=== PATIENT | female | born 1940 | race Two or more races ===

== ENCOUNTER 2019-03-28 17:22 | Inpatient (IN) | payer MEDICARE, OTHER ==
[2019-03-28] MEDS ORDERED: MethylPREDNISolone 40 mg Vial IVP STA (17:44)
[2019-03-28] MEDS ORDERED: Albuterol-Ipratrop 3 mg / 0.5 (3 ml) UD INH STA ×3 (17:44→17:45)
[2019-03-28] MEDS ORDERED: Piperacillin/Tazobact 3.375 gm 100 ML IVPB STA (18:03)
[2019-03-28] MEDS ORDERED: Vancomycin 1 gm/NS 200 ml 1 GM/200 ML BAG IVPB ONE (18:03)
[2019-03-28] MEDS ORDERED: Albuterol-Ipratrop 3 mg / 0.5 (3 ml) UD ONE (18:11)
--- NOTE | 2019-03-28 18:23 | C.PDOC ---
History Of Present Illness 78-year-old female, whose past medical history includes COPD, Hypertension, and Hyperlipidemia, presents to the ED for evaluation of cough, congestion and subjective fever. Patient states she was prescribed Amoxicillin by her PMD. She denies any other complaints. Time Seen by Provider: 03/28/19 17:38 Chief Complaint (Nursing): Cough, Cold, Congestion History Per: Patient History/Exam Limitations: no limitations Current Symptoms Are (Timing): Still Present Associated Symptoms: Fever, Cough, Nasal Congestion Additional History Per: Patient Past Medical History Reviewed: Historical Data, Nursing Documentation, Vital Signs Vital Signs: Last Vital Signs Temp 98 F 03/28/19 17:34 Pulse 95 H 03/28/19 17:34 Resp 22 03/28/19 17:34 BP 186/72 H 03/28/19 17:34 Pulse Ox 88 L 03/28/19 17:34 Primary Care Provider: Sj Villanueva - Medical History PMH: COPD, HTN, Hypercholesterolemia Surgical History: No Surg Hx Family History: States: Unknown Family Hx - Social History Hx Alcohol Use: No Hx Substance Use: No - Immunization History Hx Tetanus Toxoid Vaccination: No Hx Influenza Vaccination: Yes Hx Pneumococcal Vaccination: No Review Of Systems Constitutional: Positive for: Fever ENT: Positive for: Nose Congestion Respiratory: Positive for: Cough Gastrointestinal: Negative for: Nausea, Vomiting Physical Exam - Physical Exam Appears: Non-toxic, No Acute Distress Skin: Normal Color, Warm, Dry Head: Atraumatic, Normacephalic Eye(s): bilateral: Normal Inspection Ear(s): Bilateral: Normal Nose: Normal, No Discharge Oral Mucosa: Moist Neck: Supple Chest: Symmetrical, No Deformity, No Tenderness Cardiovascular: Rhythm Regular, No Murmur Respiratory: Decreased Breath Sounds (symmetrically ), No Rales, Rhonchi (scattered, worse in the right base ) Extremity: Normal ROM, Capillary Refill (less than 2 seconds ) Neurological/Psych: Oriented x3, Normal Speech, Normal Cognition ED Course And Treatment - Laboratory Results Result Diagrams: 03/28/19 18:26 03/28/19 18:26 ECG: Interpreted By Me, Viewed By Me ECG Rhythm: Sinus Rhythm Interpretation Of ECG: Normal Sinus Rhythm at rate 84bpm. Nonspecific ST/T wave changes. Rate From EC O2 Sat by Pulse Oximetry: 88 Medical Decision Making Medical Decision Making: ro copd pna Progress: Bloodwork,urinalysis,CXR, and EKG ordered and reviewed. Duoneb INH, Zosyn IVPB, Solu-Medrol IVP, and Vancomycin IVPB given. nebs steirod santibiotics given. (no pcn allergy). accepte jihan ngyugn Disposition - Disposition Disposition: HOSPITALIZED Disposition Time: 20:30 Condition: STABLE - Clinical Impression Clinical Impression: Pneumonia, COPD (chronic obstructive pulmonary disease) - PA / DISPLAY DECORATOR / Resident Statement MD/DO has reviewed & agrees with the documentation as recorded. - Scribe Statement The provider has reviewed the documentation as recorded by the Scribe (Melanie Javed) Provider Attestation: All medical record entries made by the Scribe were at my direction and personally dictated by me. I have reviewed the chart and agree that the record accurately reflects my personal performance of the history, physical exam, medical decision making, and the department course for this patient. I have also personally directed, reviewed, and agree with the discharge instructions and disposition. Decision To Admit - Pt Status Changed To: Hospital Disposition Of: Inpatient - Admit Certification Admit to Inpatient:: After my assessment, the patient will require hospitalization for at least two midnights. This is because of the severity of symptoms shown, intensity of services needed, and/or the medical risk in this patient being treated as an outpatient. - InPatient: Physician Admission Certification: I certify that this patient requires 2 or more midnights of care for the following reason:: copd - . Bed Request Type: Regular Admitting Physician: Blayne Altman Patient Diagnosis: Pneumonia, COPD (chronic obstructive pulmonary disease)
[2019-03-28 18:31] LABS: BASO # 0.1 K/uL (0.0-0.2); BASO % 0.4 % (0.0-2.0); EOS # 0.2 K/uL (0.0-0.7); EOS % 1.1 % (0.0-4.0); HEMOGLOBIN 12.2 g/dL (11.0-16.0); LYMPH # 1.3 K/uL (1.0-4.3); LYMPH % 8.7 % (20.0-40.0); MEAN CELL VOLUME 91.2 fL (81.0-99.0); MEAN CORPUSCULAR HEMOGLOBIN 29.9 pg (27.0-31.0); MEAN CORPUSCULAR HGB CONC 32.8 g/dL (33.0-37.0); MONO # 0.7 K/uL (0.0-0.8); MONO % 4.9 % (0.0-10.0); NEUT # 12.8 K/uL (1.8-7.0); NEUT % 84.9 % (50.0-75.0); PLATELET COUNT 524 K/uL (130-400); RBC 4.06 Mil/uL (3.80-5.20); RED CELL DISTRIBUTION WIDTH 14.9 % (11.5-14.5); WHITE BLOOD COUNT 15.1 K/uL (4.8-10.8)
[2019-03-28 18:40] LABS: INR 1.3; PROTHROMBIN TIME 14.1 SECONDS (9.7-12.2)
[2019-03-28 18:43] LABS: ALB/GLOB RATIO 0.8 (1.0-2.1); ALBUMIN 3.8 g/dL (3.5-5.0); ALT/SGPT 9 U/L (9-52); AST/SGOT 18 U/L (14-36); BLOOD UREA NITROGEN 19 mg/dL (7-17); CALCIUM 9.1 mg/dl (8.6-10.4); GFR NON-AFRICAN AMERICAN > 60
[2019-03-28] MEDS ORDERED: Piperacillin/Tazobact 3.375 gm 100 ML IVPB ONE (18:51)
[2019-03-28] MEDS ORDERED: Vancomycin 1 GM 1 GM/250 ML BAG IVPB ONE (18:51)
[2019-03-28 18:55] LABS: B-TYPE NATRIURETIC PEPTIDE 161 pg/mL (0-900)
--- NOTE | 2019-03-28 19:30 | CP.PCM.HP ---
<Britta Allison - Last Filed: 03/28/19 21:30> History of Present Illness - History of Present Illness History of Present Illness: cc: cough, congestion and malaise x2 months Patient is an 78 year old female w/ pmhx of COPD, HLD, bladder cancer who presents to the ED accompanied by her daughter, with complaints of malaise, cough and congestion on and off over the past 2 months. Patient reports she was treated by her PMD w/ abx, z-hal and augmentin most recently, with temporary improvement in symptoms; however they recur shortly thereafter. Patient reports cough, productive of yellow sputum, fevers/chills, SOB, decreased appetite and poor fluid intake. She reports 2 episodes of loose stool yesterday, but otherwise denies dysuria, vomiting, diarrhea. Patient reports non-compliance wi th home medications 2/2 feeling ill, not on home O2. PMD: Kay pmhx: COPD, HLD, bladder cancer, anxiety, psoriasis, left eye cataract/glaucoma? pshx: tonsillectomy, bladder scrapings meds: prevacid, lipitor, ativan, advair, atrovent, ventolin, eye drops-daughter will bring in meds tmrw allergies: denies, reports PCN insensitivity 2/2 frequent use as a child to treat recurrent tonsillitis sochx: smoker, denies alcohol/drug use. Lives alone w/ daughter in same building who helps care for her famhx: CHF Present on Admission - Present on Admission Any Indicators Present on Admission: No Review of Systems - Constitutional Constitutional: Anorexia, Chills, Fever - EENT Eyes: absent: Irritation, Itchy Eyes Nose/Mouth/Throat: Nasal Congestion. absent: Sore Throat - Cardiovascular Cardiovascular: absent: Chest Pain, Edema, Irregular Heart Rhythm - Respiratory Respiratory: Cough, Dyspnea, Chest Congestion, Change in Mucous Color (yellow). absent: Hemoptysis - Gastrointestinal Gastrointestinal: Loose Stools, Nausea. absent: Abdominal Pain, Diarrhea, Hematochezia, Vomiting - Genitourinary Genitourinary: Hx /Renal Surgery (bladder scrapings). absent: Difficulty Urinating, Dysuria - Integumentary Integumentary: Lesions (feet 2/2 psoriasis) - Neurological Neurological: absent: Numbness, Syncope - Psychiatric Psychiatric: Anxiety - Hematologic/Lymphatic Hematologic: absent: Easy Bleeding, Easy Bruising Past Patient History - Infectious Disease Hx of Infectious Diseases: None - Past Social History Smoking Status: Heavy Smoker > 10 Cigarettes Daily - CARDIAC Hx Hypercholesterolemia: Yes Hx Hypertension: Yes - PULMONARY Hx Chronic Obstructive Pulmonary Disease (COPD): Yes - HEMATOLOGICAL/ONCOLOGICAL Other/Comment: Hx of bladder CA with occasional scraping by Dr. Dey, as per daughter, stated on 03/28/2019. - INTEGUMENTARY Hx Psoriasis: Yes (feet) - GENITOURINARY/GYNECOLOGICAL Hx Bladder Cancer: Yes Other/Comment: Hx of bladder CA with occasional scraping by Dr. Dey, as per daughter, stated on 03/28/2019. - PSYCHIATRIC Hx Substance Use: No - SURGICAL HISTORY Hx Surgeries: Yes Hx Tonsillectomy: Yes Other/Comment: Bladder CA scraping - ANESTHESIA Hx Anesthesia: Yes Hx Anesthesia Reactions: No Hx Malignant Hyperthermia: No Meds Allergies/Adverse Reactions: Allergies Allergy/AdvReac Type Severity Reaction Status Date / Time Penicillins Allergy Intermediate Verified 03/28/19 17:41 Physical Exam - Constitutional Appears: Non-toxic, No Acute Distress - Head Exam Head Exam: ATRAUMATIC, NORMAL INSPECTION, NORMOCEPHALIC - Eye Exam Eye Exam: EOMI, Normal appearance. absent: Conjunctival injection Pupil Exam: NORMAL ACCOMODATION, PERRL - ENT Exam ENT Exam: Mucous Membranes Moist, Normal Exam - Neck Exam Neck exam: Positive for: Normal Inspection - Respiratory Exam Respiratory Exam: Decreased Breath Sounds, Rales (RLL), NORMAL BREATHING PATTERN. absent: Wheezes - Cardiovascular Exam Cardiovascular Exam: REGULAR RHYTHM, +S1, +S2. absent: Tachycardia - GI/Abdominal Exam GI & Abdominal Exam: Normal Bowel Sounds, Soft. absent: Distended, Tenderness - Extremities Exam Extremities exam: Positive for: normal inspection, pedal pulses present. Negative for: calf tenderness, pedal edema Additional comments: psoriatic lesions to toes bilaterally - Back Exam Back exam: NORMAL INSPECTION - Neurological Exam Neurological exam: Alert, Oriented x3 - Psychiatric Exam Psychiatric exam: Normal Affect, Normal Mood - Skin Skin Exam: Dry, Intact, Normal Color, Warm Results - Vital Signs Recent Vital Signs: Last Vital Signs Temp 98 F 03/28/19 17:34 Pulse 95 H 03/28/19 17:34 Resp 22 03/28/19 17:34 BP 186/72 H 03/28/19 17:34 Pulse Ox 88 L 03/28/19 19:19 - Labs Result Diagrams: 03/28/19 18:26 03/28/19 18:26 Labs: Laboratory Results - last 24 hr 03/28/19 03/28/19 03/28/19 18:26 18:26 18:26 WBC 15.1 H RBC 4.06 Hgb 12.2 Hct 37.0 MCV 91.2 D MCH 29.9 MCHC 32.8 L RDW 14.9 H Plt Count 524 H D MPV 6.0 L Neut % (Auto) 84.9 H Lymph % (Auto) 8.7 L [place] % (Auto) 4.9 Eos % (Auto) 1.1 Baso % (Auto) 0.4 Neut # (Auto) 12.8 H Lymph # (Auto) 1.3 [place] # (Auto) 0.7 Eos # (Auto) 0.2 Baso # (Auto) 0.1 PT 14.1 H INR 1.3 APTT 32.0 Sodium 143 Potassium 3.4 L Chloride 102 Carbon Dioxide 28 Anion Gap 17 BUN 19 H Creatinine 0.5 L Est GFR ( Amer) > 60 Est GFR (Non-Af Amer) > 60 Random Glucose 109 H D Calcium 9.1 Total Bilirubin 0.5 AST 18 ALT 9 D Alkaline Phosphatase 113 Troponin I < 0.0120 NT-Pro-B Natriuret Pep 161 Total Protein 8.5 H Albumin 3.8 Globulin 4.7 H Albumin/Globulin Ratio 0.8 L Assessment & Plan - Assessment and Plan (Free Text) Assessment: 78 year old female admitted for evaluation of cough, congestion and treatment of suspected PNA Plan: Suspected Pneumonia -leukocytosis 15.1 on admission -f/u CXR -given zosyn, vanc, solumedrol in ED -IV Abx, zosyn 3.375 mg ivpb q6h, vanco 1g ivpb q12h -vanco trough 03/30 @ 7:00am ordered -f/u sputum/blood cultures -f/u Mycoplasma/Legionella Ag, flu COPD -hold home meds -duonebs q4h jazmin -duonebs q2h prn -solumedrol 40mg iv q8h -O2 via NC HLD -hold home lipitor 10mg -replace w/ crestor 5mg po hs Hematuria -likely 2/2 bladder cancer -UA: 3+ blood, 226 RBC -AC contraindication Hypokalemia -K+ 3.4 on arrival -given K-dur 20mg po -replete prn Ppx GI: protonix VTE: SCDs, AC contraindicated, hematuria on UA likely 2/2 bladder cancer HHD, low Na+, supplements Florastor PT eval for O2 needs Discussed w/ Dr. Altman -Britta Allison, PGY-1 <Blayne Altman - Last Filed: 03/29/19 06:25> Results - Vital Signs Recent Vital Signs: Last Vital Signs Temp 98 F 03/28/19 23:39 Pulse 85 03/28/19 23:39 Resp 20 03/28/19 23:39 BP 112/60 03/28/19 23:39 Pulse Ox 96 03/28/19 23:39 - Labs Result Diagrams: 03/28/19 18:26 03/28/19 18:26 Labs: Laboratory Results - last 24 hr 03/28/19 03/28/19 03/28/19 18:26 18:26 18:26 WBC 15.1 H RBC 4.06 Hgb 12.2 Hct 37.0 MCV 91.2 D MCH 29.9 MCHC 32.8 L RDW 14.9 H Plt Count 524 H D MPV 6.0 L Neut % (Auto) 84.9 H Lymph % (Auto) 8.7 L [place] % (Auto) 4.9 Eos % (Auto) 1.1 Baso % (Auto) 0.4 Neut # (Auto) 12.8 H Lymph # (Auto) 1.3 Durham # (Auto) 0.7 Eos # (Auto) 0.2 Baso # (Auto) 0.1 Neutrophils % (Manual) 84 H Lymphocytes % (Manual) 6 L Monocytes % (Manual) 7 Eosinophils % (Manual) 3 Platelet Estimate Increased H PT 14.1 H INR 1.3 APTT 32.0 Sodium 143 Potassium 3.4 L Chloride 102 Carbon Dioxide 28 Anion Gap 17 BUN 19 H Creatinine 0.5 L Est GFR ( Amer) > 60 Est GFR (Non-Af Amer) > 60 Random Glucose 109 H D Calcium 9.1 Total Bilirubin 0.5 AST 18 ALT 9 D Alkaline Phosphatase 113 Troponin I < 0.0120 NT-Pro-B Natriuret Pep 161 Total Protein 8.5 H Albumin 3.8 Globulin 4.7 H Albumin/Globulin Ratio 0.8 L Urine Color Urine Clarity Urine pH Ur Specific Gardner Urine Protein Urine Glucose (UA) Urine Ketones Urine Blood Urine Nitrate Urine Bilirubin Urine Urobilinogen Ur Leukocyte Esterase Urine WBC (Auto) Urine RBC (Auto) Ur Squamous Epith Cells 03/28/19 19:47 WBC RBC Hgb Hct MCV MCH MCHC RDW Plt Count MPV Neut % (Auto) Lymph % (Auto) Durham % (Auto) Eos % (Auto) Baso % (Auto) Neut # (Auto) Lymph # (Auto) Durham # (Auto) Eos # (Auto) Baso # (Auto) Neutrophils % (Manual) Lymphocytes % (Manual) Monocytes % (Manual) Eosinophils % (Manual) Platelet Estimate PT INR APTT Sodium Potassium Chloride Carbon Dioxide Anion Gap BUN Creatinine Est GFR ( Amer) Est GFR (Non-Af Amer) Random Glucose Calcium Total Bilirubin AST ALT Alkaline Phosphatase Troponin I NT-Pro-B Natriuret Pep Total Protein Albumin Globulin Albumin/Globulin Ratio Urine Color Yellow Urine Clarity Hazy Urine pH 5.0 Ur Specific Gardner 1.024 Urine Protein 1+ H Urine Glucose (UA) Normal Urine Ketones Negative Urine Blood 3+ H Urine Nitrate Negative Urine Bilirubin Negative Urine Urobilinogen Normal Ur Leukocyte Esterase Neg Urine WBC (Auto) 5 Urine RBC (Auto) 226 H Ur Squamous Epith Cells 3 Assessment & Plan - Date & Time Date: 03/29/19 (I have seen and examined the patient. I agree with the findings and plan of care as documented by Dr. Allison. Patient with pneumonia. History of COPD. Nebs, oxygen, solumedrol. Vanco and Zosyn. Failed outpatient therapy. Hematuria. History of bladder cancer. Monitor hemoglobin. Monitor for acute changes.) Time: 06:24 Attending/Attestation - Attestation I have personally seen and examined this patient.: Yes I have fully participated in the care of the patient.: Yes I have reviewed all pertinent clinical information: Yes
[2019-03-28] MEDS ORDERED: Albuterol-Ipratrop 3 mg / 0.5 (3 ml) UD INH PRN (20:18)
[2019-03-28] MEDS ORDERED: MethylPREDNISolone 40 mg Vial IM SCH (20:30)
[2019-03-28 20:48] LABS: SQUAMOUS EPITHIAL 3 /hpf (0-5); URINE BILIRUBIN NEGATIVE (NEGATIVE); URINE BLOOD 3+ (NEGATIVE); URINE CLARITY Hazy (Clear); URINE COLOR Yellow (YELLOW); URINE GLUCOSE (UA) NORMAL (Normal); URINE LEUKOCYTE ESTERASE NEG Leu/uL (Negative); URINE PROTEIN 1+ mg/dL (NEGATIVE); URINE UROBILINOGEN NORMAL mg/dL (0.2-1.0)
[2019-03-28] MEDS ORDERED: Potassium Chloride 20 mEq ER Tab PO ONE (21:15)
[2019-03-28 21:35] VITALS: RESP 20
[2019-03-28 21:41] LABS: EOSINOPHIL 3 % (0-4); LYMPHOCYTE 6 % (20-40); MONOCYTE 7 % (0-10); NEUTROPHIL 84 % (50-75); PLATELET ESTIMATE INCREASED (NORMAL); TOTAL CELLS COUNTED 100
[2019-03-28] MEDS: MethylPREDNISolone 40 mg Vial IV SCH (21:45)
[2019-03-29] MEDS: Albuterol-Ipratrop 3 mg / 0.5 (3 ml) UD INH SCH ×7 (00:08→23:53)
[2019-03-29] MEDS: Piperacill/Tazo 3.375gm in Dex 3.375 GM/50 ML BAG IVPB SCH ×4 (00:28→18:23)
[2019-03-29] MEDS: MethylPREDNISolone 40 mg Vial IV SCH ×3 (05:22→22:01)
[2019-03-29 06:41] LABS: BASO # 0.1 K/uL (0.0-0.2); BASO % 1.2 % (0.0-2.0); EOS # 0.4 K/uL (0.0-0.7); EOS % 6.5 % (0.0-4.0); HEMOGLOBIN 12.7 g/dL (11.0-16.0); LYMPH # 1.6 K/uL (1.0-4.3); LYMPH % 25.2 % (20.0-40.0); MEAN CELL VOLUME 92.4 fL (81.0-99.0); MEAN CORPUSCULAR HEMOGLOBIN 31.6 pg (27.0-31.0); MEAN CORPUSCULAR HGB CONC 34.1 g/dL (33.0-37.0); MEAN PLATELET VOLUME 8.8 fL (7.2-11.7); MONO # 0.8 K/uL (0.0-0.8); MONO % 13.1 % (0.0-10.0); NEUT # 3.4 K/uL (1.8-7.0); RBC 4.03 Mil/uL (3.80-5.20); RED CELL DISTRIBUTION WIDTH 13.4 % (11.5-14.5); WHITE BLOOD COUNT 6.4 K/uL (4.8-10.8)
[2019-03-29 07:41] LABS: ALB/GLOB RATIO 1.3 (1.0-2.1); ALBUMIN 3.6 g/dL (3.5-5.0); ALT/SGPT 26 U/L (9-52); AST/SGOT 33 U/L (14-36); BLOOD UREA NITROGEN 30 mg/dL (7-17); CALCIUM 9.2 mg/dl (8.6-10.4); GFR NON-AFRICAN AMERICAN > 60
[2019-03-29] MEDS: Vancomycin 1 gm/NS 200 ml 1 GM/200 ML BAG IVPB SCH ×2 (07:51→20:08)
--- NOTE | 2019-03-29 09:11 | CP.PCM.PCO ---
Physician Communication Note - Physician Communication Note Physician Communication Note: Please see above
[2019-03-29] MEDS: Pantoprazole 40 mg EC Tab PO SCH (09:27)
[2019-03-29] MEDS: Lactobacillus Acidophilus 500 MU Cap PO SCH ×2 (09:27→22:00)
[2019-03-29] MEDS ORDERED: Potassium Chloride 20 mEq ER Tab PO ONE ×2 (10:00→12:00)
[2019-03-29] MEDS ORDERED: Saccharomyces Boulardi 250 mg Cap PO SCH (10:00)
--- NOTE | 2019-03-29 10:07 | CP.PCM.PN ---
<Derrell Price - Last Filed: 03/29/19 16:19> Subjective - Date & Time of Evaluation Date of Evaluation: 03/29/19 Time of Evaluation: 10:04 - Subjective Subjective: HOSPITALIST SERVICE Pt s/e at bedside, reports improvement of her SOB overnight w/ breathing treatments, reports producing yellow sputum, no blood. Pt understands and agrees with plan for continued antibiotics and will remain inpatient at this time. Denies CP, fevers/chills, nausea/vomiting, or any new onset body aches headaches, 12 point ROS reviewed and otherwise neg Objective - Vital Signs/Intake and Output Vital Signs (last 24 hours): Temp Pulse Resp BP Pulse Ox 98.1 F 70 20 124/64 95 03/29/19 07:00 03/29/19 07:00 03/29/19 07:00 03/29/19 07:00 03/29/19 07:00 Intake and Output: 03/29/19 03/29/19 06:59 18:59 Intake Total 250 Balance 250 - Medications Medications: Current Medications Albuterol/Ipratropium (Duoneb 3 Mg/0.5 Mg (3 Ml) Ud) 3 ml INH RQ4 PERI Last Admin: 03/29/19 08:41 Dose: 3 ml Albuterol/Ipratropium (Duoneb 3 Mg/0.5 Mg (3 Ml) Ud) 3 ml INH RQ2 PRN PRN Reason: Shortness of Breath Piperacillin Sod/Tazobactam Sod (Zosyn 3.375 Gm Iv Premix) 3.375 gm in 50 mls @ 100 mls/hr IVPB Q6H PERI; Protocol Last Admin: 03/29/19 06:21 Dose: 100 mls/hr Vancomycin/Sodium Chloride (Vancomycin 1 Gm/Ns 200 Ml) 1 gm in 200 mls @ 133 mls/hr IVPB Q12H PERI; Protocol Stop: 04/03/19 07:31 Last Admin: 03/29/19 07:51 Dose: 133 mls/hr Lactobacillus Acidophilus (Lactobacillus) 1 cap PO Q12H PERI Last Admin: 03/29/19 09:27 Dose: 1 cap Lorazepam (Ativan) 0.5 mg PO TID PRN PRN Reason: Anxiety Last Admin: 03/29/19 09:42 Dose: 0.5 mg Methylprednisolone (Solu-Medrol) 40 mg IV Q8H [facility] Last Admin: 03/29/19 05:22 Dose: 40 mg Pantoprazole Sodium (Protonix Ec Tab) 40 mg PO DAILY [facility] Last Admin: 03/29/19 09:27 Dose: 40 mg Pneumococcal Polyvalent Vaccine (Pneumovax 23 Vaccine) 0.5 ml IM .ONCE ONE Stop: 03/30/19 10:01 Potassium Chloride (K-Dur 20 Meq Er Tab) 20 meq PO ONCE ONE Stop: 03/29/19 12:01 Rosuvastatin Calcium (Crestor) 5 mg PO HS [facility] Last Admin: 03/28/19 21:45 Dose: 5 mg - Labs Labs: 03/29/19 06:33 03/29/19 06:33 PT 14.1 SECONDS (9.7-12.2) H 03/28/19 18:26 INR 1.3 03/28/19 18:26 APTT 32.0 SECONDS (21-34) 03/28/19 18:26 - Additional Findings Additional findings: - Constitutional Constitutional: Anorexia, Chills, Fever - EENT Eyes: absent: Irritation, Itchy Eyes Nose/Mouth/Throat: Nasal Congestion. absent: Sore Throat - Cardiovascular Cardiovascular: absent: Chest Pain, Edema, Irregular Heart Rhythm - Respiratory Respiratory: Cough, Dyspnea, Chest Congestion, Change in Mucous Color (yellow), basillar rales L side. absent: Hemoptysis - Gastrointestinal Gastrointestinal: Loose Stools, Nausea. absent: Abdominal Pain, Diarrhea, Hematochezia, Vomiting - Genitourinary Genitourinary: Hx /Renal Surgery (bladder scrapings). absent: Difficulty Urinating, Dysuria - Integumentary Integumentary: Lesions (feet 2/2 psoriasis) - Neurological Neurological: absent: Numbness, Syncope - Psychiatric Psychiatric: Anxiety - Hematologic/Lymphatic Hematologic: absent: Easy Bleeding, Easy Bruising Assessment and Plan - Assessment and Plan (Free Text) Assessment: 78F admitted with pneumonia unresponsive to Z clinton/Augmentin CAP with Risk for Pseudomonas and MRSA (Hx COPD and Recent Antibiotic Use: Z Clinton and Augmentin) Status: Acute -Zosyn and Vancomycin IVPB -F/U Blood Culture -F/U Mycoplasma IgM and IgG -F/U Urine Legionella Ag -F/U Urine Strep penumoniae Ag -F/U Vancomycin Trough 7 PM 03/30/19 (Vancomycin is being given 7:30 AM and 7:30 PM) -CXR from yesterday appears unchanged from previous in chart, f/u official read COPD Exacerbation Status: Acute -Duoneb q2 PRN for SOB -Solumedrol 40 mg IV Q8H -Consider Pulmonology Consult Hypokalemia Status: Acute -60meq KCL repleated -f/u AM CMP Hx Anxiety Status: Chronic -Ativan dose lowered from 2mg to 0.5 mg PRN TID with 0.5mg HS Hx HLD Status: Chronic -Crestor 5mg HS Hx Nicotine Addiction Status: Chronic Hx Bladder CA Status: Chronic -Private Urologist Dr. Danay Dey: next appointment April 2019. -last Cytoscopy December 2018. -Monitor for hematuria Hx Left Eye [place]/Cataract Status: Chronic -Dr Slaughter is her private Ophtholmolgist [phone] -Home Drops: Smooth XP, Refresh Tears, PredForte PPx -Probiotic -PTX -PT/OT -SCDs -Supplemental Diet Dispo: dc home in 48hrs afebrile and improving clinically [facility] PGY1 <Malcolm Javed - Last Filed: 03/29/19 17:21> Objective - Vital Signs/Intake and Output Vital Signs (last 24 hours): Temp Pulse Resp BP Pulse Ox 98.8 F 83 20 125/59 L 98 03/29/19 15:47 03/29/19 15:47 03/29/19 15:47 03/29/19 15:47 03/29/19 15:47 Intake and Output: 03/29/19 03/29/19 06:59 18:59 Intake Total 250 350 Balance 250 350 - Medications Medications: Current Medications Acetaminophen (Tylenol 325mg Tab) 650 mg PO Q12 PRN PRN Reason: Pain, moderate (4-7) Albuterol/Ipratropium (Duoneb 3 Mg/0.5 Mg (3 Ml) Ud) 3 ml INH RQ4 PERI Last Admin: 03/29/19 16:32 Dose: 3 ml Albuterol/Ipratropium (Duoneb 3 Mg/0.5 Mg (3 Ml) Ud) 3 ml INH RQ2 PRN PRN Reason: Shortness of Breath Piperacillin Sod/Tazobactam Sod (Zosyn 3.375 Gm Iv Premix) 3.375 gm in 50 mls @ 100 mls/hr IVPB Q6H PERI; Protocol Last Admin: 03/29/19 13:06 Dose: 100 mls/hr Vancomycin/Sodium Chloride (Vancomycin 1 Gm/Ns 200 Ml) 1 gm in 200 mls @ 133 mls/hr IVPB Q12H PERI; Protocol Stop: 04/03/19 07:31 Last Admin: 03/29/19 07:51 Dose: 133 mls/hr Lactobacillus Acidophilus (Lactobacillus) 1 cap PO Q12H PERI Last Admin: 03/29/19 09:27 Dose: 1 cap Lorazepam (Ativan) 0.5 mg PO TID PRN PRN Reason: Anxiety Last Admin: 03/29/19 09:42 Dose: 0.5 mg Lorazepam (Ativan) 0.5 mg PO HS ONE Stop: 03/29/19 22:01 Methylprednisolone (Solu-Medrol) 40 mg IV Q8H PERI Last Admin: 03/29/19 13:12 Dose: 40 mg Pantoprazole Sodium (Protonix Ec Tab) 40 mg PO DAILY PERI Last Admin: 03/29/19 09:27 Dose: 40 mg Pneumococcal Polyvalent Vaccine (Pneumovax 23 Vaccine) 0.5 ml IM .ONCE ONE Stop: 03/30/19 10:01 Rosuvastatin Calcium (Crestor) 5 mg PO HS [facility] Last Admin: 03/28/19 21:45 Dose: 5 mg - Labs Labs: 03/29/19 06:33 03/29/19 06:33 PT 14.1 SECONDS (9.7-12.2) H 03/28/19 18:26 INR 1.3 03/28/19 18:26 APTT 32.0 SECONDS (21-34) 03/28/19 18:26 Attending/Attestation - Attestation I have personally seen and examined this patient.: Yes I have fully participated in the care of the patient.: Yes I have reviewed all pertinent clinical information, including history, physical exam and plan: Yes Notes (Text): 03/29/19 17:20 Care of this patient was gone over in detail with resident Dr. Price. Please also see my Physician Communication Note. Malcolm Javed D.O.
--- NOTE | 2019-03-29 11:26 | RAD ---
HISTORY: chest pain COMPARISON: None available. TECHNIQUE: Chest, one view. FINDINGS: LUNGS: Patchy bilateral lower lobe infiltrates. Small left pleural effusion and/or consolidation. Biapical pleural thickening and granulomatous changes. No definite pneumothorax. Please note that chest x-ray has limited sensitivity for the detection of pulmonary masses. CARDIOVASCULAR: Heart size appears within normal limits. Dense atherosclerotic calcifications of the aorta. OSSEOUS STRUCTURES: Degenerative changes. Osseous demineralization. VISUALIZED UPPER ABDOMEN: Unremarkable. OTHER FINDINGS: None. IMPRESSION: Patchy bilateral lower lobe infiltrates. Small left pleural effusion and/or consolidation. Biapical pleural thickening and granulomatous changes.
[2019-03-29] MEDS ORDERED: Potassium Chloride 20 mEq/15 ml LIQ UD PO ONE (13:15)
[2019-03-29] MEDS: Simethicone 80 mg Chewtab PO PRN (22:40)
[2019-03-30] MEDS: Piperacill/Tazo 3.375gm in Dex 3.375 GM/50 ML BAG IVPB SCH ×5 (00:39→23:41)
[2019-03-30] MEDS: Albuterol-Ipratrop 3 mg / 0.5 (3 ml) UD INH SCH ×5 (03:08→20:23)
[2019-03-30] MEDS: MethylPREDNISolone 40 mg Vial IV SCH ×3 (05:56→21:33)
[2019-03-30 06:40] LABS: BASO # 0.2 K/uL (0.0-0.2); LYMPH # 0.6 K/uL (1.0-4.3); LYMPH % 2.9 % (20.0-40.0); MEAN CORPUSCULAR HEMOGLOBIN 29.8 pg (27.0-31.0); MEAN CORPUSCULAR HGB CONC 32.8 g/dL (33.0-37.0); MEAN PLATELET VOLUME 6.3 fL (7.2-11.7); MONO # 0.4 K/uL (0.0-0.8); MONO % 1.9 % (0.0-10.0); NEUT % 94.2 % (50.0-75.0); PLATELET COUNT 550 K/uL (130-400); RED CELL DISTRIBUTION WIDTH 15.2 % (11.5-14.5); WHITE BLOOD COUNT 21.3 K/uL (4.8-10.8)
[2019-03-30 06:52] LABS: HEMOGLOBIN 10.7 g/dL (11.0-16.0)
[2019-03-30] MEDS: Vancomycin 1 gm/NS 200 ml 1 GM/200 ML BAG IVPB SCH ×2 (07:56→21:12)
[2019-03-30 08:01] LABS: ALB/GLOB RATIO 0.8 (1.0-2.1); ALBUMIN 3.5 g/dL (3.5-5.0); ALT/SGPT 14 U/L (9-52); AST/SGOT 35 U/L (14-36); BLOOD UREA NITROGEN 20 mg/dL (7-17); CALCIUM 9.3 mg/dl (8.6-10.4); GFR NON-AFRICAN AMERICAN > 60
[2019-03-30] MEDS: Lactobacillus Acidophilus 500 MU Cap PO SCH ×2 (09:32→22:01)
[2019-03-30] MEDS: Pantoprazole 40 mg EC Tab PO SCH (09:33)
[2019-03-30 09:54] LABS: MONOCYTE 2 % (0-10); TOTAL CELLS COUNTED 100
[2019-03-30 09:55] LABS: ANISOCYTOSIS SLIGHT; LYMPHOCYTE 2 % (20-40); NEUTROPHIL 96 % (50-75); PLATELET ESTIMATE INCREASED (NORMAL)
[2019-03-30 09:56] LABS: HYPOCHROMIC SLIGHT
[2019-03-30] MEDS ORDERED: Pneumococcal 23-Valent Vaccine IM ONE (10:00)
--- NOTE | 2019-03-30 11:17 | CP.PCM.PN ---
Subjective - Date & Time of Evaluation Date of Evaluation: 03/30/19 Time of Evaluation: 11:15 - Subjective Subjective: HOSPITALIST SERVICE Pt s/e at bedside, reports improvement in cough and SOB as compared to yesterday. Reports no acute symptoms overnight. denies CP FC NV. understands she will need to f/u with a traffic i manager and agrees with plan. Objective - Vital Signs/Intake and Output Vital Signs (last 24 hours): Temp Pulse Resp BP Pulse Ox 98 F 78 20 130/68 96 03/29/19 23:37 03/29/19 23:37 03/29/19 23:37 03/29/19 23:37 03/29/19 23:37 Intake and Output: 03/30/19 03/30/19 06:59 18:59 Intake Total 450 Balance 450 - Medications Medications: Current Medications Acetaminophen (Tylenol 325mg Tab) 650 mg PO Q12 PRN PRN Reason: Pain, moderate (4-7) Albuterol/Ipratropium (Duoneb 3 Mg/0.5 Mg (3 Ml) Ud) 3 ml INH RQ4 PERI Last Admin: 03/30/19 08:32 Dose: 3 ml Albuterol/Ipratropium (Duoneb 3 Mg/0.5 Mg (3 Ml) Ud) 3 ml INH RQ2 PRN PRN Reason: Shortness of Breath Piperacillin Sod/Tazobactam Sod (Zosyn 3.375 Gm Iv Premix) 3.375 gm in 50 mls @ 100 mls/hr IVPB Q6H PERI; Protocol Last Admin: 03/30/19 05:55 Dose: 100 mls/hr Vancomycin/Sodium Chloride (Vancomycin 1 Gm/Ns 200 Ml) 1 gm in 200 mls @ 133 mls/hr IVPB Q12H PERI; Protocol Stop: 04/03/19 07:31 Last Admin: 03/30/19 07:56 Dose: 133 mls/hr Lactobacillus Acidophilus (Lactobacillus) 1 cap PO Q12H PERI Last Admin: 03/30/19 09:32 Dose: 1 cap Lorazepam (Ativan) 0.5 mg PO TID PRN PRN Reason: Anxiety Last Admin: 03/30/19 07:57 Dose: 0.5 mg Methylprednisolone (Solu-Medrol) 40 mg IV Q12 PERI Pantoprazole Sodium (Protonix Ec Tab) 40 mg PO DAILY [facility] Last Admin: 03/30/19 09:33 Dose: 40 mg Rosuvastatin Calcium (Crestor) 5 mg PO HS [facility] Last Admin: 03/29/19 22:01 Dose: 5 mg Simethicone (Mylicon Chew Tab) 80 mg PO Q6 PRN PRN Reason: GI distress Last Admin: 03/29/19 22:40 Dose: 80 mg - Labs Labs: 03/30/19 06:35 03/30/19 06:35 PT 14.1 SECONDS (9.7-12.2) H 03/28/19 18:26 INR 1.3 03/28/19 18:26 APTT 32.0 SECONDS (21-34) 03/28/19 18:26 - Additional Findings Additional findings: - Constitutional Constitutional: Anorexia, Chills, Fever - EENT Eyes: absent: Irritation, Itchy Eyes Nose/Mouth/Throat: Nasal Congestion. absent: Sore Throat - Cardiovascular Cardiovascular: absent: Chest Pain, Edema, Irregular Heart Rhythm - Respiratory Respiratory: Cough, Dyspnea, Chest Congestion, Change in Mucous Color (yellow), basillar rales L side. absent: Hemoptysis - Gastrointestinal Gastrointestinal: Loose Stools, Nausea. absent: Abdominal Pain, Diarrhea, Hematochezia, Vomiting - Genitourinary Genitourinary: Hx /Renal Surgery (bladder scrapings). absent: Difficulty Urinating, Dysuria - Integumentary Integumentary: Lesions (feet 2/2 psoriasis) - Neurological Neurological: absent: Numbness, Syncope - Psychiatric Psychiatric: Anxiety - Hematologic/Lymphatic Hematologic: absent: Easy Bleeding, Easy Bruising Assessment and Plan - Assessment and Plan (Free Text) Assessment: 78F admitted with pneumonia unresponsive to Z clinton/Augmentin CAP with Risk for Pseudomonas and MRSA (Hx COPD and Recent Antibiotic Use: Z Clinton and Augmentin) Status: Acute -Zosyn and Vancomycin IVPB -Neg Blood Culture -Neg Mycoplasma IgM and IgG -Neg Urine Legionella Ag -Neg Urine Strep penumoniae Ag -F/U Vancomycin Trough 7 PM 03/30/19 (Vancomycin is being given 7:30 AM and 7:30 PM) -CXR shows no new evidence of infiltrates/ worsening disease COPD Exacerbation Status: Acute -Duoneb q2 PRN for SOB -Solumedrol 40 mg IV Q8H -Dr Potts Pulmonology Consult f/u room air ABG, consider home O2 Rx on dc Hx Anxiety Status: Chronic -Ativan dose lowered from 2mg to 0.5 mg PRN TID with 0.5mg HS Hx HLD Status: Chronic -Crestor 5mg HS Hx Nicotine Addiction Status: Chronic Hx Bladder CA Status: Chronic -Private Urologist Dr. Danay Dey: next appointment April 2019. -last Cytoscopy December 2018. -Monitor for hematuria Hx Left Eye [place]/Cataract Status: Chronic -Dr Slaughter is her private Ophtholmolgist [phone] -Home Drops: Smooth XP, Refresh Tears, PredForte Hypokalemia Status: resolved PPx -Probiotic -PTX -PT/OT -SCDs -Supplemental Diet Dispo: dc home tmrw when home O2 and Pulm recs attained, f/u ABG. afebrile and improving clinically CK PGY1
--- NOTE | 2019-03-30 11:18 | CP.PCM.PCO ---
Physician Communication Note - Physician Communication Note Physician Communication Note: Please see above
--- NOTE | 2019-03-30 13:37 | CP.PCM.CON ---
History of Present Illness - History of Present Illness History of Present Illness: Reason for consultation: COPD/shortness of breath 78-year-old female with history of COPD/long history of smoking/hyperlipidemia/bladder cancer presented to emergency room complaining of cough, congestion and shortness of breath for the past 2 months which progressively got worse. Patient took 2 courses of antibiotics without impro vement. Cough is productive of yellowish phlegm but denies fever chills, denies chest pain pmhx: COPD, HLD, bladder cancer, anxiety, psoriasis, left eye cataract/glaucoma? pshx: tonsillectomy, bladder scrapings meds: prevacid, lipitor, ativan, advair, atrovent, ventolin, eye drops-daughter will bring in meds tmrw allergies: denies, reports PCN insensitivity 2/2 frequent use as a child to treat recurrent tonsillitis sochx: smoker, denies alcohol/drug use. Lives alone w/ daughter in same build ing who helps care for her famhx: CHF Review of Systems - Review of Systems All systems: reviewed and no additional remarkable complaints except (Cough and shortness of breath) Past Patient History - Infectious Disease Hx of Infectious Diseases: None - Past Medical History & Family History Past Medical History?: Yes - Past Social History Smoking Status: Current Some Days Smoker - CARDIAC Hx Hypercholesterolemia: Yes Hx Hypertension: Yes - PULMONARY Hx Chronic Obstructive Pulmonary Disease (COPD): Yes - HEMATOLOGICAL/ONCOLOGICAL Other/Comment: Hx of bladder CA with occasional scraping by Dr. Dey, as per daughter, stated on 03/28/2019. - INTEGUMENTARY Hx Psoriasis: Yes (feet) - MUSCULOSKELETAL/RHEUMATOLOGICAL Hx Falls: No - GENITOURINARY/GYNECOLOGICAL Hx Bladder Cancer: Yes Other/Comment: Hx of bladder CA with occasional scraping by Dr. Dey, as per daughter, stated on 03/28/2019. - PSYCHIATRIC Hx Substance Use: No - SURGICAL HISTORY Hx Surgeries: Yes Hx Tonsillectomy: Yes Other/Comment: Bladder CA scraping - ANESTHESIA Hx Anesthesia: Yes Hx Anesthesia Reactions: No Hx Malignant Hyperthermia: No Meds Allergies/Adverse Reactions: Allergies Allergy/AdvReac Type Severity Reaction Status Date / Time Penicillins Allergy Intermediate Verified 03/28/19 17:41 - Medications Medications: Current Medications Acetaminophen (Tylenol 325mg Tab) 650 mg PO Q12 PRN PRN Reason: Pain, moderate (4-7) Albuterol/Ipratropium (Duoneb 3 Mg/0.5 Mg (3 Ml) Ud) 3 ml INH RQ4 PERI Last Admin: 03/30/19 11:24 Dose: 3 ml Albuterol/Ipratropium (Duoneb 3 Mg/0.5 Mg (3 Ml) Ud) 3 ml INH RQ2 PRN PRN Reason: Shortness of Breath Piperacillin Sod/Tazobactam Sod (Zosyn 3.375 Gm Iv Premix) 3.375 gm in 50 mls @ 100 mls/hr IVPB Q6H PERI; Protocol Last Admin: 03/30/19 11:33 Dose: 100 mls/hr Vancomycin/Sodium Chloride (Vancomycin 1 Gm/Ns 200 Ml) 1 gm in 200 mls @ 133 mls/hr IVPB Q12H PERI; Protocol Stop: 04/03/19 07:31 Last Admin: 03/30/19 07:56 Dose: 133 mls/hr Lactobacillus Acidophilus (Lactobacillus) 1 cap PO Q12H PERI Last Admin: 03/30/19 09:32 Dose: 1 cap Lorazepam (Ativan) 0.5 mg PO TID PRN PRN Reason: Anxiety Last Admin: 03/30/19 07:57 Dose: 0.5 mg Methylprednisolone (Solu-Medrol) 40 mg IV Q12 PERI Pantoprazole Sodium (Protonix Ec Tab) 40 mg PO DAILY [facility] Last Admin: 03/30/19 09:33 Dose: 40 mg Rosuvastatin Calcium (Crestor) 5 mg PO HS [facility] Last Admin: 03/29/19 22:01 Dose: 5 mg Simethicone (Mylicon Chew Tab) 80 mg PO Q6 PRN PRN Reason: GI distress Last Admin: 03/29/19 22:40 Dose: 80 mg Physical Exam - Head Exam Head Exam: ATRAUMATIC, NORMOCEPHALIC - ENT Exam ENT Exam: Mucous Membranes Moist - Neck Exam Neck exam: Positive for: Normal Inspection - Respiratory Exam Respiratory Exam: Decreased Breath Sounds - Cardiovascular Exam Cardiovascular Exam: REGULAR RHYTHM - GI/Abdominal Exam GI & Abdominal Exam: Normal Bowel Sounds, Soft - Extremities Exam Extremities exam: Positive for: normal inspection - Neurological Exam Neurological exam: Alert, Oriented x3 Results - Vital Signs Recent Vital Signs: Last Vital Signs Temp 98 F 03/29/19 23:37 Pulse 78 03/29/19 23:37 Resp 20 03/29/19 23:37 BP 130/68 03/29/19 23:37 Pulse Ox 96 03/29/19 23:37 - Labs Result Diagrams: 03/30/19 13:39 03/30/19 06:35 Labs: Laboratory Results - last 24 hr 03/29/19 03/29/19 03/29/19 17:03 19:46 19:49 WBC RBC Hgb Hct MCV MCH MCHC RDW Plt Count MPV Neut % (Auto) Lymph % (Auto) [place] % (Auto) Eos % (Auto) Baso % (Auto) Neut # (Auto) Lymph # (Auto) [place] # (Auto) Eos # (Auto) Baso # (Auto) Neutrophils % (Manual) Lymphocytes % (Manual) Monocytes % (Manual) Platelet Estimate Hypochromasia (manual) Anisocytosis (manual) Sodium Potassium Chloride Carbon Dioxide Anion Gap BUN Creatinine Est GFR ( Amer) Est GFR (Non-Af Amer) Random Glucose Calcium Phosphorus Magnesium Total Bilirubin AST ALT Alkaline Phosphatase Total Protein Albumin Globulin Albumin/Globulin Ratio Influenza Typ A,B (EIA) Negative for flu a/b Ur L.pneumophila Ag Negative Mycoplasma pneumon IgM Negative S. pneumoniae Antigen 03/29/19 03/30/19 03/30/19 19:49 06:35 06:35 WBC 21.3 H D RBC 3.60 L Hgb 10.7 L D Hct 32.7 L MCV 91.0 MCH 29.8 MCHC 32.8 L RDW 15.2 H Plt Count 550 H D MPV 6.3 L Neut % (Auto) 94.2 H Lymph % (Auto) 2.9 L [place] % (Auto) 1.9 Eos % (Auto) 0.0 Baso % (Auto) 1.0 Neut # (Auto) 20.0 H Lymph # (Auto) 0.6 L [place] # (Auto) 0.4 Eos # (Auto) 0.0 Baso # (Auto) 0.2 Neutrophils % (Manual) 96 H Lymphocytes % (Manual) 2 L Monocytes % (Manual) 2 Platelet Estimate Increased H Hypochromasia (manual) Slight Anisocytosis (manual) Slight Sodium 137 Potassium 4.5 Chloride 103 Carbon Dioxide 22 Anion Gap 16 BUN 20 H Creatinine 0.6 L Est GFR ( Amer) > 60 Est GFR (Non-Af Amer) > 60 Random Glucose 132 H D Calcium 9.3 Phosphorus 3.0 Magnesium 2.0 Total Bilirubin 0.3 AST 35 ALT 14 Alkaline Phosphatase 89 Total Protein 7.8 Albumin 3.5 Globulin 4.3 H Albumin/Globulin Ratio 0.8 L Influenza Typ A,B (EIA) Ur L.pneumophila Ag Mycoplasma pneumon IgM S. pneumoniae Antigen Negative Assessment & Plan (1) COPD (chronic obstructive pulmonary disease) Assessment and Plan: Continue IV steroids and nebulizer treatment IV antibiotics Home oxygen Physical therapy Consider Daliresp Status: Acute (2) Pneumonia Status: Acute
--- NOTE | 2019-03-30 13:40 | CARD ---
APPROVED REPORT Date of service: 03/28/2019 EKG Measurement Heart [id number] <Conclusion> Normal sinus rhythm Inferior infarct, age undetermined Anterior infarct, age undetermined Abnormal ECG
[2019-03-30 13:51] LABS: BASO % 0.1 % (0.0-2.0); HEMOGLOBIN 11.4 g/dL (11.0-16.0); LYMPH # 0.5 K/uL (1.0-4.3); LYMPH % 2.4 % (20.0-40.0); MEAN CELL VOLUME 92.4 fL (81.0-99.0); MEAN CORPUSCULAR HEMOGLOBIN 29.6 pg (27.0-31.0); MEAN PLATELET VOLUME 6.2 fL (7.2-11.7); MONO # 0.4 K/uL (0.0-0.8); MONO % 2.1 % (0.0-10.0); NEUT # 18.7 K/uL (1.8-7.0); NEUT % 95.4 % (50.0-75.0); PLATELET COUNT 581 K/uL (130-400); RBC 3.86 Mil/uL (3.80-5.20); RED CELL DISTRIBUTION WIDTH 15.1 % (11.5-14.5); WHITE BLOOD COUNT 19.6 K/uL (4.8-10.8)
[2019-03-30 14:19] LABS: ARTERIAL BLOOD GAS HCO3 26.8 mmol/L (21-28); ARTERIAL BLOOD GAS PCO2 40 mm/Hg (35-45); ARTERIAL BLOOD GAS PH 7.44 (7.35-7.45); ARTERIAL BLOOD GAS PO2 51 mm/Hg (80-100); ARTERIAL BLOOD GAS TCO2 28.4 mmol/L (22-28)
[2019-03-30 15:03] LABS: LYMPHOCYTE 3 % (20-40); NEUTROPHIL 97 % (50-75); PLATELET ESTIMATE INCREASED (NORMAL); TOTAL CELLS COUNTED 100
[2019-03-30 15:10] LABS: ANISOCYTOSIS SLIGHT; HYPOCHROMIC SLIGHT; POLYCHROMIC SLIGHT
[2019-03-30] MEDS: Simethicone 80 mg Chewtab PO PRN (16:59)
[2019-03-31] MEDS: Albuterol-Ipratrop 3 mg / 0.5 (3 ml) UD INH SCH ×4 (00:25→12:37)
[2019-03-31] MEDS ORDERED: MethylPREDNISolone 40 mg Vial IVP ONE (02:00)
[2019-03-31] MEDS: Piperacill/Tazo 3.375gm in Dex 3.375 GM/50 ML BAG IVPB SCH ×2 (05:44→12:58)
[2019-03-31 08:19] LABS: HEMOGLOBIN 11.2 g/dL (11.0-16.0); LYMPH # 0.5 K/uL (1.0-4.3); LYMPH % 3.5 % (20.0-40.0); MEAN CORPUSCULAR HEMOGLOBIN 29.4 pg (27.0-31.0); MEAN CORPUSCULAR HGB CONC 32.6 g/dL (33.0-37.0); MEAN PLATELET VOLUME 6.1 fL (7.2-11.7); MONO # 0.3 K/uL (0.0-0.8); MONO % 2.4 % (0.0-10.0); NEUT # 12.7 K/uL (1.8-7.0); NEUT % 94.1 % (50.0-75.0); PLATELET COUNT 572 K/uL (130-400); RBC 3.82 Mil/uL (3.80-5.20); RED CELL DISTRIBUTION WIDTH 14.8 % (11.5-14.5); WHITE BLOOD COUNT 13.6 K/uL (4.8-10.8)
[2019-03-31 08:23] LABS: MEAN CELL VOLUME 90.2 fL (81.0-99.0)
[2019-03-31 08:25] LABS: ALB/GLOB RATIO 0.8 (1.0-2.1); ALBUMIN 3.4 g/dL (3.5-5.0); ALT/SGPT 16 U/L (9-52); AST/SGOT 17 U/L (14-36); BLOOD UREA NITROGEN 18 mg/dL (7-17); CALCIUM 9.2 mg/dl (8.6-10.4); GFR NON-AFRICAN AMERICAN > 60
[2019-03-31 08:35] VITALS: BP 138/82; PULSE 80; TEMP 98.5; O2SAT 96
--- NOTE | 2019-03-31 09:07 | CP.PCM.PCO ---
Physician Communication Note - Physician Communication Note Physician Communication Note: Please see above
[2019-03-31] MEDS ORDERED: Magnesium Oxide 400 mg Tab UD PO ONE (09:15)
[2019-03-31] MEDS: Lactobacillus Acidophilus 500 MU Cap PO SCH (09:35)
[2019-03-31] MEDS: Pantoprazole 40 mg EC Tab PO SCH (09:35)
[2019-03-31] MEDS: MethylPREDNISolone 40 mg Vial IV SCH (09:36)
[2019-03-31] MEDS: Vancomycin 1 gm/NS 200 ml 1 GM/200 ML BAG IVPB SCH (09:37)
[2019-03-31 10:33] LABS: LYMPHOCYTE 4 % (20-40); MONOCYTE 4 % (0-10); NEUTROPHIL 92 % (50-75); PLATELET ESTIMATE INCREASED (NORMAL); TOTAL CELLS COUNTED 100
--- NOTE | 2019-03-31 10:36 | CP.PCM.DIS ---
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 (6) COPD (chronic obstructive pulmonary disease) Status: Chronic (7) Pneumonia Status: Resolved Hospital Course - Lab Results Lab Results: Micro Results 03/28/19 18:30 Blood Blood Culture - Preliminary NO GROWTH AFTER 48 HOURS 03/28/19 18:10 Blood Blood Culture - Preliminary NO GROWTH AFTER 48 HOURS 03/29/19 17:03 Sputum Gram Stain - Final Most Recent Lab Values WBC 13.6 K/uL (4.8-10.8) H 03/31/19 08:04 RBC 3.82 Mil/uL (3.80-5.20) 03/31/19 08:04 Hgb 11.2 g/dL (11.0-16.0) 03/31/19 08:04 Hct 34.4 % (34.0-47.0) 03/31/19 08:04 MCV 90.2 fL (81.0-99.0) D 03/31/19 08:04 MCH 29.4 pg (27.0-31.0) 03/31/19 08:04 MCHC 32.6 g/dL (33.0-37.0) L 03/31/19 08:04 RDW 14.8 % (11.5-14.5) H 03/31/19 08:04 Plt Count 572 K/uL (130-400) H 03/31/19 08:04 MPV 6.1 fL (7.2-11.7) L 03/31/19 08:04 Neut % (Auto) 94.1 % (50.0-75.0) H 03/31/19 08:04 Lymph % (Auto) 3.5 % (20.0-40.0) L 03/31/19 08:04 [place] % (Auto) 2.4 % (0.0-10.0) 03/31/19 08:04 Eos % (Auto) 0.0 % (0.0-4.0) 03/31/19 08:04 Baso % (Auto) 0.0 % (0.0-2.0) 03/31/19 08:04 Neut # (Auto) 12.7 K/uL (1.8-7.0) H 03/31/19 08:04 Lymph # (Auto) 0.5 K/uL (1.0-4.3) L 03/31/19 08:04 [place] # (Auto) 0.3 K/uL (0.0-0.8) 03/31/19 08:04 Eos # (Auto) 0.0 K/uL (0.0-0.7) 03/31/19 08:04 Baso # (Auto) 0.0 K/uL (0.0-0.2) 03/31/19 08:04 Neutrophils % (Manual) 92 % (50-75) H 03/31/19 08:04 Lymphocytes % (Manual) 4 % (20-40) L 03/31/19 08:04 Monocytes % (Manual) 4 % (0-10) 03/31/19 08:04 Eosinophils % (Manual) 3 % (0-4) 03/28/19 18:26 Platelet Estimate Increased (NORMAL) H 03/31/19 08:04 RBC Morphology Normal 03/31/19 08:04 Polychromasia Slight 03/30/19 13:39 Hypochromasia (manual) Slight 03/30/19 13:39 Anisocytosis (manual) Slight 03/30/19 13:39 PT 14.1 SECONDS (9.7-12.2) H 03/28/19 18:26 INR 1.3 03/28/19 18:26 APTT 32.0 SECONDS (21-34) 03/28/19 18:26 Puncture Site Rba 03/30/19 14:15 pCO2 40 mm/Hg (35-45) 03/30/19 14:15 pO2 51 mm/Hg (80-100) L 03/30/19 14:15 HCO3 26.8 mmol/L (21-28) 03/30/19 14:15 ABG pH 7.44 (7.35-7.45) 03/30/19 14:15 ABG Total CO2 28.4 mmol/L (22-28) H 03/30/19 14:15 ABG O2 Saturation 91.0 % (95-98) L 03/30/19 14:15 ABG Base Excess 2.8 mmol/L (-2.0-3.0) 03/30/19 14:15 Anup Test Na 03/30/19 14:15 ABG Potassium 3.7 mmol/L (3.6-5.2) 03/30/19 14:15 A-a O2 Difference 49.0 mm/Hg 03/30/19 14:15 Respiratory Index 1.0 03/30/19 14:15 Sodium 140.0 mmol/l (132-148) 03/30/19 14:15 Chloride 107.0 mmol/L (98-107) 03/30/19 14:15 Glucose 147 mg/dl (65-105) H 03/30/19 14:15 Lactate 1.8 mmol/L (0.7-2.1) 03/30/19 14:15 FiO2 21.0 % 03/30/19 14:15 Sodium 139 mmol/L (132-148) 03/31/19 08:04 Potassium 4.3 mmol/L (3.6-5.2) 03/31/19 08:04 Chloride 102 mmol/L (98-107) 03/31/19 08:04 Carbon Dioxide 30 mmol/L (22-30) 03/31/19 08:04 Anion Gap 11 (10-20) 03/31/19 08:04 BUN 18 mg/dL (7-17) H 03/31/19 08:04 Creatinine 0.6 mg/dL (0.7-1.2) L 03/31/19 08:04 Est GFR ( Amer) > 60 03/31/19 08:04 Est GFR (Non-Af Amer) > 60 03/31/19 08:04 Random Glucose 123 mg/dL (65-105) H 03/31/19 08:04 Calcium 9.2 mg/dl (8.6-10.4) 03/31/19 08:04 Phosphorus 3.2 mg/dL (2.5-4.5) 03/31/19 08:04 Magnesium 2.2 mg/dL (1.6-2.3) 03/31/19 08:04 Total Bilirubin 0.3 mg/dL (0.2-1.3) 03/31/19 08:04 AST 17 U/L (14-36) 03/31/19 08:04 ALT 16 U/L (9-52) 03/31/19 08:04 Alkaline Phosphatase 76 U/L (38-126) 03/31/19 08:04 Troponin I < 0.0120 ng/mL (0.00-0.120) 03/28/19 18:26 NT-Pro-B Natriuret Pep 161 pg/mL (0-900) 03/28/19 18:26 Total Protein 7.4 g/dL (6.3-8.3) 03/31/19 08:04 Albumin 3.4 g/dL (3.5-5.0) L 03/31/19 08:04 Globulin 4.0 gm/dL (2.2-3.9) H 03/31/19 08:04 Albumin/Globulin Ratio 0.8 (1.0-2.1) L 03/31/19 08:04 Arterial Blood Potassium 3.7 mmol/L (3.6-5.2) 03/30/19 14:15 Urine Color Yellow (YELLOW) 03/28/19 19:47 Urine Clarity Hazy (Clear) 03/28/19 19:47 Urine pH 5.0 (5.0-8.0) 03/28/19 19:47 Ur Specific [place] 1.024 (1.003-1.030) 03/28/19 19:47 Urine Protein 1+ mg/dL (NEGATIVE) H 03/28/19 19:47 Urine Glucose (UA) Normal mg/dL (Normal) 03/28/19 19:47 Urine Ketones Negative mg/dL (NEGATIVE) 03/28/19 19:47 Urine Blood 3+ (NEGATIVE) H 03/28/19 19:47 Urine Nitrate Negative (NEGATIVE) 03/28/19 19:47 Urine Bilirubin Negative (NEGATIVE) 03/28/19 19:47 Urine Urobilinogen Normal mg/dL (0.2-1.0) 03/28/19 19:47 Ur Leukocyte Esterase Neg [place]/uL (Negative) 03/28/19 19:47 Urine WBC (Auto) 5 /hpf (0-5) 03/28/19 19:47 Urine RBC (Auto) 226 /hpf (0-3) H 03/28/19 19:47 Ur Squamous Epith Cells 3 /hpf (0-5) 03/28/19 19:47 Vancomycin Trough 15.4 ug/mL (5.0-10.0) H 03/30/19 19:42 Influenza Typ A,B (EIA) Negative for flu a/b (NEGATIVE) 03/29/19 17:03 Ur L.pneumophila Ag Negative (NEGATIVE) 03/29/19 19:49 Mycoplasma pneumon IgM Negative (NEGATIVE) 03/29/19 19:46 S. pneumoniae Antigen Negative (NEGATIVE) 03/29/19 19:49 - Hospital Course Hospital Course: cc: cough, congestion and malaise x2 months Patient is an 78 year old female w/ pmhx of COPD, HLD, bladder cancer who presents to the ED accompanied by her daughter, with complaints of malaise, cough and congestion on and off over the past 2 months. Patient reports she was treated by her PMD w/ abx, z-hal and augmentin most recently, with temporary improvement in symptoms; however they recur shortly thereafter. Patient reports cough, productive of yellow sputum, fevers/chills, SOB, decreased appetite and poor fluid intake. She reports 2 episodes of loose stool yesterday, but otherwise denies dysuria, vomiting, diarrhea. Patient reports non-compliance with home medications 2/2 feeling ill, not on home O2. PMD: Kay pmhx: COPD, HLD, bladder cancer, anxiety, psoriasis, left eye cataract/glaucoma? pshx: tonsillectomy, bladder scrapings meds: prevacid, lipitor, ativan, advair, atrovent, ventolin, eye drops-daughter will bring in meds tmrw allergies: denies, reports PCN insensitivity 2/2 frequent use as a child to treat recurrent tonsillitis sochx: smoker, denies alcohol/drug use. Lives alone w/ daughter in same building who helps care for her famhx: CHF COURSE: Pt was started on Vanc(trough 15), Zosyn IVPB, WBCs came down initially, remained afebrile. Pt was also given Solumedrol 40IVP q8 and had a WBC spike on 03/29, which trended down with the taper, [address] Potts was consulted, pt is to receive home O2, daliresp and duonebs. She is also to complete a 4 day course of Doxy 100 BID, and a 5 day prednisone taper. CXRs unchanged blood and sputum cultures neg Discussed with Dr Villanueva PMD for follow up care and continuation of plan THIS IS A SUMMARY PLEASE REFER TO [facility] FOR COMPLETE RECORDS Discharge Exam - Head Exam Head Exam: ATRAUMATIC, NORMOCEPHALIC - Additional Findings Additional findings: - Constitutional Constitutional: Anorexia, Chills, Fever - EENT Eyes: absent: Irritation, Itchy Eyes Nose/Mouth/Throat: Nasal Congestion. absent: Sore Throat - Cardiovascular Cardiovascular: absent: Chest Pain, Edema, Irregular Heart Rhythm - Respiratory Respiratory: Cough, Dyspnea, Chest Congestion, Change in Mucous Color (yellow), basillar rales L side. absent: Hemoptysis - Gastrointestinal Gastrointestinal: Loose Stools, Nausea. absent: Abdominal Pain, Diarrhea, Hematochezia, Vomiting - Genitourinary Genitourinary: Hx /Renal Surgery (bladder scrapings). absent: Difficulty Urinating, Dysuria - Integumentary Integumentary: Lesions (feet 2/2 psoriasis) - Neurological Neurological: absent: Numbness, Syncope - Psychiatric Psychiatric: Anxiety - Hematologic/Lymphatic Hematologic: absent: Easy Bleeding, Easy Bruising Discharge Plan - Discharge Medications Prescriptions: Albuterol/Ipratropium [Duoneb 3 mg/0.5 mg (3 ml) UD] 3 ml INH Q6H #60 neb Roflumilast [Daliresp] 250 mcg PO DAILY #30 tablet - Follow Up Plan Condition: STABLE Disposition: HOME/ ROUTINE Instructions: Community Acquired Pneumonia (DC), Bacterial Pneumonia (DC) Additional Instructions: Pt may be discharged home on the following medications Doxycycline 100mg PO BID @8am and 8pm # 8: total of 4 days Bacid pro biotic tab take 1 tab BID @ 10am and 6pm #64: total of 34 days Prednisone 10mg tabs Taper take 50mg (5 tabs at once) on 04/01 @ 8am take 40mg (4 tabs at once) on 04/02 @ 8am take 30mg (3 tabs at once) on 04/03 @ 8am take 20mg (2 tabs at once) on 04/04 @ 8am take 10mg (1 tab) on 04/05 @ 8am Atorvastatin 10mg daily before sleep Pepcid 20mg daily by mouth #5 take @ 8am Daliresp 250mcg daily by mouth @ 8am Duonebs Inhaler, 3ml one puff every 6hrs for shortness of breath Please follow up with Dr Villanueva within 7 days Please follow up with Dr Danay Dey in april for your cystoscopy Please follow up with Dr Potts your [employer] within 7 days for Lung function testing and establishment of care Take Care and be well [facility] PGY1 Referrals: Augustus Potts MD [Staff Provider] - Sj Villanueva MD [Medical Doctor] - Danay Dey MD [Staff Provider] -
--- NOTE | 2019-03-31 13:40 | CP.PCM.PN ---
Subjective - Date & Time of Evaluation Date of Evaluation: 03/31/19 Time of Evaluation: 10:00 - Subjective Subjective: Patient seen and examined Dyspnea on minimal exertion Afebrile To be discharged home today Home oxygen Follow-up in the office P.o. prednisone Objective - Vital Signs/Intake and Output Vital Signs (last 24 hours): Temp Pulse Resp BP Pulse Ox 98.5 F 80 20 138/82 96 03/31/19 08:00 03/31/19 08:00 03/31/19 08:00 03/31/19 08:00 03/31/19 08:00 Intake and Output: 03/31/19 03/31/19 06:59 18:59 Intake Total 790 Balance 790 - Medications Medications: Current Medications Acetaminophen (Tylenol 325mg Tab) 650 mg PO Q12 PRN PRN Reason: Pain, moderate (4-7) Albuterol/Ipratropium (Duoneb 3 Mg/0.5 Mg (3 Ml) Ud) 3 ml INH RQ4 PERI Last Admin: 03/31/19 12:37 Dose: 3 ml Albuterol/Ipratropium (Duoneb 3 Mg/0.5 Mg (3 Ml) Ud) 3 ml INH RQ2 PRN PRN Reason: Shortness of Breath Piperacillin Sod/Tazobactam Sod (Zosyn 3.375 Gm Iv Premix) 3.375 gm in 50 mls @ 100 mls/hr IVPB Q6H PERI; Protocol Last Admin: 03/31/19 12:58 Dose: Not Given Vancomycin/Sodium Chloride (Vancomycin 1 Gm/Ns 200 Ml) 1 gm in 200 mls @ 133 mls/hr IVPB Q12H PERI; Protocol Stop: 04/03/19 07:31 Last Admin: 03/31/19 09:37 Dose: 133 mls/hr Lactobacillus Acidophilus (Lactobacillus) 1 cap PO Q12H PERI Last Admin: 03/31/19 09:35 Dose: 1 cap Lorazepam (Ativan) 0.5 mg PO TID PRN PRN Reason: Anxiety Last Admin: 03/31/19 09:35 Dose: 0.5 mg Methylprednisolone (Solu-Medrol) 40 mg IV Q12 PERI Last Admin: 03/31/19 09:36 Dose: 40 mg Pantoprazole Sodium (Protonix Ec Tab) 40 mg PO DAILY PERI Last Admin: 03/31/19 09:35 Dose: 40 mg Rosuvastatin Calcium (Crestor) 5 mg PO HS PERI Last Admin: 03/30/19 22:01 Dose: 5 mg Simethicone (Mylicon Chew Tab) 80 mg PO Q6 PRN PRN Reason: GI distress Last Admin: 03/30/19 16:59 Dose: 80 mg - Labs Labs: 03/31/19 08:04 03/31/19 08:04 PT 14.1 SECONDS (9.7-12.2) H 03/28/19 18:26 INR 1.3 03/28/19 18:26 APTT 32.0 SECONDS (21-34) 03/28/19 18:26 Assessment and Plan (1) COPD (chronic obstructive pulmonary disease) Status: Chronic (2) Pneumonia Status: Resolved
== END 2019-03-31 14:17 | disposition home or self-care (01) | DRG 190 ==
LOC: C.ER 17:22 → C.9E 19:24 → C.3T 20:35
PROVIDERS: ADMIT Family Medicine; ATTEND Family Medicine
DX: J44.0 Chronic obstructive pulmonary disease with (acute) lower respiratory infection (principal); J18.9 Pneumonia, unspecified organism; J44.1 Chronic obstructive pulmonary disease with (acute) exacerbation; E87.6 Hypokalemia; I11.0 Hypertensive heart disease with heart failure; Z91.14 Patient's other noncompliance with medication regimen; F41.9 Anxiety disorder, unspecified; F17.210 Nicotine dependence, cigarettes, uncomplicated; R31.9 Hematuria, unspecified; D09.0 Carcinoma in situ of bladder; H40.9 Unspecified glaucoma; H26.9 Unspecified cataract; E78.5 Hyperlipidemia, unspecified

== ENCOUNTER 2019-04-13 18:51 | Inpatient (IN) | payer MEDICARE, OTHER ==
[2019-04-13] MEDS ORDERED: Sodium Chloride 0.9% 1,000 ML IV ONE (19:17)
--- NOTE | 2019-04-13 19:26 | C.PDOC ---
History Of Present Illness Patient is a 78 year old female who presents to the ED with her daughter for evaluation after a recent hospitalization 2 weeks ago for pneumonia. While patient was in the hospital she reports having a rough time because her cigarettes and Ativan were taken away, but her symptoms improved and she was discharged home with supplemental oxygen. As per daughter, at home patient has seemed depressed, weak, listless and has still been coughing for the past few days. Denies fever or chills. Time Seen by Provider: 04/13/19 19:10 Chief Complaint (Nursing): Medical Clearance History Per: Patient History/Exam Limitations: no limitations Onset/Duration Of Symptoms: Days Current Symptoms Are (Timing): Still Present Recent travel outside of the [place]: No Additional History Per: Patient Past Medical History Reviewed: Historical Data, Nursing Documentation, Vital Signs Vital Signs: Last Vital Signs Temp 97.8 F 04/13/19 19: Pulse 81 04/13/19 19:01 Resp 20 04/13/19 19:01 BP 152/79 H 04/13/19 19:01 Pulse Ox 100 04/13/19 19:01 Primary Care Provider: Non [facility] Provider, - Medical History PMH: COPD, HTN, Hypercholesterolemia Surgical History: Tonsillectomy Family History: States: Unknown Family Hx - Social History Hx Alcohol Use: No Hx Substance Use: No - Immunization History Hx Tetanus Toxoid Vaccination: No Hx Influenza Vaccination: Yes Hx Pneumococcal Vaccination: No Review Of Systems Constitutional: Positive for: Weakness, Malaise. Negative for: Fever, Chills Respiratory: Positive for: Cough Psych: Positive for: Depression Physical Exam - Physical Exam Appears: Non-toxic, No Acute Distress, Other (flat affect) Skin: Warm, Dry Head: Atraumatic, Normacephalic Eye(s): bilateral: Normal Inspection Oral Mucosa: Moist Neck: Normal ROM, Supple Chest: Symmetrical, No Deformity Cardiovascular: Rhythm Regular, No Murmur Respiratory: Decreased Breath Sounds (at left base), Rhonchi (course rhonchi at right base ), Wheezing (scattered wheezing throughout on expiration ) Gastrointestinal/Abdominal: Soft, No Tenderness Neurological/Psych: Oriented x3 ED Course And Treatment - Laboratory Results Result Diagrams: 04/13/19 19:26 04/13/19 19:26 Lab Interpretation: Abnormal (K+ 2.6, UA WBC 10 with bacteria and 1+ leukocyte esterase) ECG: Interpreted By Me ECG Rhythm: Sinus Rhythm (with old septal and inferior infarcts) ECG Interpretation: No Acute Changes O2 Sat by Pulse Oximetry: 100 (on RA) Pulse Ox Interpretation: Normal - Radiology CXR: Interpreted by Me CXR Interpretation: Yes: Infiltrates (bilateral), Other (L pleural effusion) - Physician Consult Information Outcome Of Conversation: Cse discussed with Dr Javed. Patient to be admitted for evaluation of hypokalemia and failure to thrive. Medical Decision Making Medical Decision Making: Plan: EKG Labs CXR UA IV Fluids Disposition - Disposition Disposition: HOSPITALIZED Disposition Time: 21:54 Condition: FAIR - Clinical Impression Clinical Impression: Failure to thrive in adult, Hypokalemia - Scribe Statement The provider has reviewed the documentation as recorded by the Lashawnibtaty Rush All medical record entries made by the Scribe were at my direction and personally dictated by me. I have reviewed the chart and agree that the record accurately reflects my personal performance of the history, physical exam, medical decision making, and the department course for this patient. I have also personally directed, reviewed, and agree with the discharge instructions and disposition.
[2019-04-13 19:30] LABS: BASO # 0.1 K/uL (0.0-0.2); BASO % 0.6 % (0.0-2.0); EOS # 0.1 K/uL (0.0-0.7); EOS % 1.3 % (0.0-4.0); HEMOGLOBIN 12.3 g/dL (11.0-16.0); LYMPH # 1.3 K/uL (1.0-4.3); LYMPH % 13.7 % (20.0-40.0); MEAN CELL VOLUME 90.1 fL (81.0-99.0); MEAN CORPUSCULAR HGB CONC 33.3 g/dL (33.0-37.0); MEAN PLATELET VOLUME 6.5 fL (7.2-11.7); MONO # 0.7 K/uL (0.0-0.8); MONO % 7.5 % (0.0-10.0); NEUT # 7.2 K/uL (1.8-7.0); NEUT % 76.9 % (50.0-75.0); RBC 4.1 Mil/uL (3.80-5.20); RED CELL DISTRIBUTION WIDTH 15.8 % (11.5-14.5); WHITE BLOOD COUNT 9.4 K/uL (4.8-10.8)
[2019-04-13] MEDS ORDERED: Sodium Chloride 0.9% 1,000 ML ONE (19:30)
[2019-04-13 19:52] LABS: ALBUMIN 3.8 g/dL (3.5-5.0); ALT/SGPT 14 U/L (9-52); AST/SGOT 16 U/L (14-36); BLOOD UREA NITROGEN 13 mg/dL (7-17); CALCIUM 9.8 mg/dl (8.6-10.4); GFR NON-AFRICAN AMERICAN > 60
[2019-04-13] MEDS ORDERED: Potassium Chloride 20 mEq ER Tab PO STA (19:59)
[2019-04-13] MEDS ORDERED: Potassium Chloride 20 mEq ER Tab PO ONE (20:15)
[2019-04-13 20:36] LABS: SQUAMOUS EPITHIAL 2 /hpf (0-5); URINE BACTERIA FEW (<OCC); URINE BILIRUBIN NEGATIVE (NEGATIVE); URINE BLOOD 2+ (NEGATIVE); URINE CLARITY Hazy (Clear); URINE COLOR Yellow (YELLOW); URINE GLUCOSE (UA) NORMAL (Normal); URINE LEUKOCYTE ESTERASE 1+ Leu/uL (Negative); URINE PROTEIN NEGATIVE (NEGATIVE); URINE UROBILINOGEN NORMAL mg/dL (0.2-1.0)
[2019-04-13 22:44] VITALS: RESP 20
[2019-04-13] MEDS: Moxifloxacin IV 400mg/250ml NS 400 MG/250 ML BAG IVPB SCH (23:45)
[2019-04-14] MEDS: Albuterol-Ipratrop 3 mg / 0.5 (3 ml) UD INH SCH ×4 (04:18→20:22)
--- NOTE | 2019-04-14 09:14 | RAD ---
Chest x-ray single frontal view HISTORY: Shortness of breath. COMPARISON: 03/28/2019 FINDINGS: Biapical pleural thickening with upper lobe granulomatous changes. Hyperinflation suggestive for COPD and or emphysematous changes. Scattered nodular densities in both lung robert including in the left suprahilar region and left lung base. Patchy increased markings at the lung bases; left greater than right with some nodular consolidative changes at the left costophrenic angle. Tortuous aorta with calcification at the aortic knob. Degenerative changes of the spine. IMPRESSION: Biapical pleural thickening with upper lobe granulomatous changes. Hyperinflation suggestive for COPD and or emphysematous changes. Scattered nodular densities in both lung robert including in the left suprahilar region and left lung base. Patchy increased markings at the lung bases; left greater than right with some nodular consolidative changes at the left costophrenic angle. Tortuous aorta with calcification at the aortic knob.
--- NOTE | 2019-04-14 09:34 | CT ---
Date of service: 04/13/2019 PROCEDURE: CT Chest without contrast HISTORY: pleural effusion COMPARISON: None available. TECHNIQUE: Contiguous axial images were obtained through the chest without intravenous contrast enhancement. Sagittal and coronal reconstructions were performed. Radiation dose: Total exam DLP = 149.17 mGy-cm. This CT exam was performed using one or more of the following dose reduction techniques: Automated exposure control, adjustment of the mA and/or kV according to patient size, and/or use of iterative reconstruction technique. FINDINGS: LUNGS: There is severe pulmonary hyperinflation. There is extensive centrilobular emphysema in the lungs with upper lobe predominance. There is a 4 mm nodule in the right middle lobe (series 3, image 61). There is biapical pleural parenchymal scarring. There is confluent airspace disease in the right middle lobe. There is also airspace disease in the left lung base. There are subpleural blebs and mild fibrotic changes in the left lung base. MEDIASTINUM: Unremarkable thoracic aorta. No aneurysm. Normal sized heart. Main pulmonary artery unremarkable. No vascular congestion. There are mildly enlarged mediastinal lymph nodes measuring up to 1.2 cm in short axis, likely reactive. There are aortic atherosclerotic calcifications present. PLEURA: No pleural fluid. No pneumothorax. BONES: There is diffuse bone demineralization and multilevel degenerative changes in the spine. There is a chronic inferior endplate compression fracture deformity in the T12 vertebral body. There is exaggerated thoracic kyphosis UPPER ABDOMEN: Grossly unremarkable. OTHER FINDINGS: There is a small sliding hiatal. IMPRESSION: 1. Extensive centrilobular emphysema with upper lobe predominance. No evidence for pleural effusion or pneumothorax. 2. Confluent airspace disease in the right middle lobe may represent atelectasis however superimposed pneumonia cannot be excluded. Confluent airspace disease in the left lung base could also represent atelectasis or pneumonia. Follow-up after medical management is recommended to ensure complete resolution. 3. 4 mm nodule in the right middle lobe. Follow-up CT scan in 6-12 month interval is recommended to assess stability of this nodule. A preliminary report was provided by [email or web address].
[2019-04-14] MEDS: Enoxaparin 40 mg Syringe SC SCH (10:46)
[2019-04-14] MEDS: Azithromycin 500 MG in Sodium Chloride 0.9% 250 ML IVPB SCH (10:46)
[2019-04-14 11:29] LABS: BLOOD UREA NITROGEN 10 mg/dL (7-17); CALCIUM 8.7 mg/dl (8.6-10.4); GFR NON-AFRICAN AMERICAN > 60
[2019-04-14] MEDS ORDERED: Potassium Chloride 20 mEq ER Tab PO ONE ×2 (12:30→13:45)
[2019-04-14] MEDS ORDERED: Pantoprazole 40 mg EC Tab PO SCH (12:30)
--- NOTE | 2019-04-14 14:14 | CP.PCM.HP ---
Past Patient History - Infectious Disease Hx of Infectious Diseases: None - Past Medical History & Family History Past Medical History?: Yes - Past Social History Smoking Status: Current Some Days Smoker - CARDIAC Hx Cardiac Disorders: Yes Hx Hypercholesterolemia: Yes Hx Hypertension: Yes - PULMONARY Hx Respiratory Disorders: Yes Hx Chronic Obstructive Pulmonary Disease (COPD): Yes - NEUROLOGICAL Hx Neurological Disorder: No - HEENT Hx HEENT Problems: No - RENAL Hx Chronic Kidney Disease: No - ENDOCRINE/METABOLIC Hx Endocrine Disorders: No - HEMATOLOGICAL/ONCOLOGICAL Hx Blood Disorders: No Other/Comment: Hx of bladder CA with occasional scraping by Dr. Dey, as per daughter, stated on 03/28/2019. - INTEGUMENTARY Hx Dermatological Problems: Yes Hx Psoriasis: Yes (feet) - MUSCULOSKELETAL/RHEUMATOLOGICAL Hx Musculoskeletal Disorders: No Hx Falls: No - GASTROINTESTINAL Hx Gastrointestinal Disorders: No - GENITOURINARY/GYNECOLOGICAL Hx Genitourinary Disorders: Yes Hx Bladder Cancer: Yes Other/Comment: Hx of bladder CA with occasional scraping by Dr. Dey, as per daughter, stated on 03/28/2019. - PSYCHIATRIC Hx Psychophysiologic Disorder: No Hx Substance Use: No - SURGICAL HISTORY Hx Surgeries: Yes Hx Tonsillectomy: Yes - ANESTHESIA Hx Anesthesia: Yes Hx Anesthesia Reactions: No Hx Malignant Hyperthermia: No Has any member of the family had a problem w/ anesthesia?: No Meds Allergies/Adverse Reactions: Allergies Allergy/AdvReac Type Severity Reaction Status Date / Time Penicillins AdvReac Intermediate Verified 04/13/19 18:59 Physical Exam - Constitutional Appears: Well - Head Exam Head Exam: ATRAUMATIC, NORMAL INSPECTION, NORMOCEPHALIC - Eye Exam Eye Exam: EOMI, Normal appearance, PERRL Pupil Exam: NORMAL ACCOMODATION, PERRL - ENT Exam ENT Exam: Mucous Membranes Moist, Normal Exam - Neck Exam Neck exam: Positive for: Normal Inspection - Respiratory Exam Respiratory Exam: Decreased Breath Sounds - Cardiovascular Exam Cardiovascular Exam: REGULAR RHYTHM, +S1, +S2 - GI/Abdominal Exam GI & Abdominal Exam: Diminished Bowel Sounds, Soft - Rectal Exam Rectal Exam: Deferred - Neurological Exam Neurological exam: Oriented x3 Results - Vital Signs Recent Vital Signs: Last Vital Signs Temp 97.3 F L 04/14/19 07:41 Pulse 75 04/14/19 07:41 Resp 20 04/14/19 07:41 BP 151/75 H 04/14/19 07:41 Pulse Ox 96 04/14/19 07:41 - Labs Result Diagrams: 04/13/19 19:26 04/14/19 10:59 Labs: Laboratory Results - last 24 hr 04/13/19 04/13/19 04/13/19 18:57 19:26 19:26 WBC 9.4 RBC 4.10 Hgb 12.3 Hct 36.9 MCV 90.1 MCH 30.0 MCHC 33.3 RDW 15.8 H Plt Count 451 H D MPV 6.5 L Neut % (Auto) 76.9 H Lymph % (Auto) 13.7 L Izard % (Auto) 7.5 Eos % (Auto) 1.3 Baso % (Auto) 0.6 Neut # (Auto) 7.2 H Lymph # (Auto) 1.3 Izard # (Auto) 0.7 Eos # (Auto) 0.1 Baso # (Auto) 0.1 Sodium 138 Potassium 2.6 L Chloride 98 Carbon Dioxide 31 H Anion Gap 11 BUN 13 Creatinine 0.6 L Est GFR ( Amer) > 60 Est GFR (Non-Af Amer) > 60 POC Glucose (mg/dL) 126 H Random Glucose 106 H Calcium 9.8 Magnesium 2.0 Total Bilirubin 0.4 AST 16 ALT 14 Alkaline Phosphatase 91 Total Protein 7.6 Albumin 3.8 Globulin 3.8 Albumin/Globulin Ratio 1.0 Urine Color Urine Clarity Urine pH Ur Specific [place] Urine Protein Urine Glucose (UA) Urine Ketones Urine Blood Urine Nitrate Urine Bilirubin Urine Urobilinogen Ur Leukocyte Esterase Urine WBC (Auto) Urine RBC (Auto) Ur Squamous Epith Cells Urine Bacteria 04/13/19 04/14/19 20:23 10:59 WBC RBC Hgb Hct MCV MCH MCHC RDW Plt Count MPV Neut % (Auto) Lymph % (Auto) Izard % (Auto) Eos % (Auto) Baso % (Auto) Neut # (Auto) Lymph # (Auto) Izard # (Auto) Eos # (Auto) Baso # (Auto) Sodium 140 Potassium 3.3 L Chloride 104 Carbon Dioxide 30 Anion Gap 9 L BUN 10 Creatinine 0.6 L Est GFR ( Amer) > 60 Est GFR (Non-Af Amer) > 60 POC Glucose (mg/dL) Random Glucose 91 Calcium 8.7 Magnesium Total Bilirubin AST ALT Alkaline Phosphatase Total Protein Albumin Globulin Albumin/Globulin Ratio Urine Color Yellow Urine Clarity Hazy Urine pH 6.0 Ur Specific [place] 1.013 Urine Protein Negative Urine Glucose (UA) Normal Urine Ketones Negative Urine Blood 2+ H Urine Nitrate Negative Urine Bilirubin Negative Urine Urobilinogen Normal Ur Leukocyte Esterase 1+ H Urine WBC (Auto) 10 H Urine RBC (Auto) 21 H Ur Squamous Epith Cells 2 Urine Bacteria Few H
[2019-04-14] MEDS ORDERED: Iodixanol 320 MG/ML 100 ML BOTTLE IV ONE (15:46)
--- NOTE | 2019-04-14 16:37 | CT ---
Date of service: 04/14/2019 PROCEDURE: CT Chest with contrast (Pulmonary Angiogram) HISTORY: PE COMPARISON: Noncontrast chest CT 04/13/2019. Lung base from distant prior abdomen pelvis CT with contrast 05/26/2012. TECHNIQUE: Axial computed tomography images were obtained of the chest in the pulmonary arterial phase of enhancement. Coronal and sagittal reformatted images were created and reviewed. Intravenous contrast dose: Visipaque 320, 100 cc Radiation dose: Total exam DLP = 272.6 mGy-cm. This CT exam was performed using one or more of the following dose reduction techniques: Automated exposure control, adjustment of the mA and/or kV according to patient size, and/or use of iterative reconstruction technique. FINDINGS: PULMONARY ARTERIES: Unremarkable. No pulmonary embolism. AORTA: The thoracic inlet appears unremarkable. No definitive mediastinal mass. No acute findings. No thoracic aortic aneurysm. Calcific atherosclerotic changes are seen related to the thoracic aorta. Normal main pulmonary artery caliber. LUNGS: Gross COPD changes are identified with apical pre dominant diffuse centrilobular emphysematous changes present. Volume loss of the left lung is appreciated due to fibrosis with complete atelectasis of the right middle lobe. A defined of mass is not seen at the right middle lobe though endobronchial lesions not excluded at the distal segment main right middle lobe bronchus. This is the transition from aerated to completely under aerated right middle lobe. 4 mm right upper lobe reiterated medially in image 68 series 4. No definitive additional pulmonary mass appreciated bilaterally. Left lower lobe fibrosis/atelectasis is particularly prominent. No definitive new alveolar infiltrate bilaterally. PLEURAL SPACES: Unremarkable. No effusion or pneumothorax. HEART: Multifocal calcified coronary artery atherosclerosis noted.. No cardiomegaly. No significant pericardial effusion. LYMPH NODES: No significant lymphadenopathy. BONES, CHEST WALL: Kyphotic thoracic spinal deformity as well as levoscoliotic thoracolumbar spinal deformity with likely chronic compression fractures inferior thoracic spine. No acute fracture or destructive bony lesion appreciable throughout. OTHER FINDINGS: Unremarkable. IMPRESSION: 1. No CT evidence of acute pulmonary embolus. 2. Extensive COPD including volume loss/pulmonary fibrosis left lung/lower lobe predominantly when compared to the right. 3. Gross atelectasis right middle lobe. Consider potential endobronchial lesion at distal main right middle lobe bronchus though none is clearly identifiable. 4. 4 mm noncalcified right upper lobe again evident. Twelve month low-dose CT of chest recommended for follow-up.
[2019-04-14] MEDS: Moxifloxacin IV 400mg/250ml NS 400 MG/250 ML BAG IVPB SCH (22:27)
--- NOTE | 2019-04-15 01:29 | CON ---
DATE: 04/14/2019 HISTORY OF PRESENT ILLNESS: This 78-year-old lady is an ex-smoker with a history of bronchitis, now admitted with dyspepsia, heavy stomach, feeling upper abdominal pain and chest discomfort. These symptoms happened at around 04:30 in the afternoon yesterday with no vomiting and with no hematemesis. She has had cough and shortness of breath and felt weak. She has usually not had these symptoms in the past. There was no fever, no chills, no headache. She has cough with scanty mucous sputum with no hemoptysis and she has been slightly short of breath. These symptoms improved after antacid use and use of Tums. She has had no history of cardiac disease. No seizures. No past history of dyspepsia. No arthritic pains. PAST MEDICAL HISTORY: As stated above. No diabetes. No hypertension. No heart disease, but she has had history of bronchitis. FAMILY HISTORY: Unremarkable. SOCIAL HISTORY: She has been a smoker in the past but is cutting it down. ALLERGIES: NO ALLERGIES. HABITS: No substance use but has been using Ativan for insomnia. REVIEW OF SYSTEMS: Systemic review as reported above. No history of seizures, hemoptysis, hematemesis, renal disease or arthritic pains. PHYSICAL EXAMINATION: GENERAL: She is thin built. She is alert, oriented, not in acute distress at rest. VITAL SIGNS: She is afebrile. Blood pressure 151/75, pulse 75, respirations 20, hemoglobin-oxygen saturation of 96%, oxygen 2 liters via nasal cannula. HEENT: Unremarkable. NECK: Supple. No lymphadenopathy. HEART: Regular. No gallop rhythm. LUNGS: Diminished breath sounds over the lung bases. There is rhonchi present. ABDOMEN: Soft. EXTREMITIES: Legs, no edema. LABORATORY DATA: White count 9400, hemoglobin 12.3, platelet count 451,000. Serum sodium 140, potassium 3.3, chloride 104, carbon dioxide 30, anion gap 9, BUN 10, creatinine 0.6, random glucose 91. Urine showed presence of blood and his report is negative for urine esterase, leukocyte esterase is 1+, urine wbc is 10 and few bacteria. Chest x-ray shows hyperinflation with emphysematous changes. CT chest showed small sliding hiatus hernia. Extensive centrilobular emphysema with upper lobe predominance. There was no evidence of pleural effusion or pneumothorax consistent with airspace disease in the right middle lobe, may be present with atelectasis with superimposed pneumonitis cannot be excluded. Also reported was a 4-mm nodule in the right middle lobe. Followup CT chest was recommended in 6-8 months. IMPRESSION: Respiratory insufficiency, chronic obstructive pulmonary disease with emphysema, small sliding hiatus hernia, insomnia. PLAN: Plan to continue with the current medications including bronchodilators, vasodilators and antibiotics and treatment of dyspepsia with heartburn and also deep venous thrombosis prophylaxis with urine culture and sensitivity, sputum culture and sensitivity and PFT and EMGs. Continue all other medications. Bong Paul MD
[2019-04-15] MEDS: Albuterol-Ipratrop 3 mg / 0.5 (3 ml) UD INH SCH ×4 (01:33→20:14)
--- NOTE | 2019-04-15 06:53 | PQF ---
PROVIDER RESPONSE TEXT: Pneumonia in the setting of Failure to Thrive , still with Cough with nodular consolidation in right lower lobe as seen on CT chest treated with Azithromycin IV, Avelox IV REVIEWER QUERY TEXT: Clarification of Clinical Diagnostic Findings Please clarify documentation or clinical relevance for the clinical / diagnostic findings or whether those are insignificant or unable to be further specified. Pneumonia in the setting of Failure to Thrive , still with Cough with nodular consolidation in right lower lobe as seen on CT chest treated with Azithromycin IV, Avelox IV -Other Explanation. -Unable to Determine. The patient's Clinical Indicators include: Clinical Findings: 78 y.o. F, recent hospitalization 2 weeks ago for pneumonia. ,discharged with Home O2. Daughter states pt is depressed, weak, listless and has still been coughing for the past few day s. CXR: Patchy increased markings at the lung bases; left greater than right with some nodular consolidative changes at the left costophrenic angle. CT CHEST : Confluent airspace disease in the right middle lobe may represent atelectasis however superimposed pneumonia Treatment: Azithromycin IV, Avelox IV,, DUONEB Risk Factor : Immunosuppresed, Chronic Illness Query created by: Rahel Rodgers on 04/14/2019 6:13 PM Electronically signed by: William COOPER 04/15/2019 6:50 AM
[2019-04-15] MEDS: Enoxaparin 40 mg Syringe SC SCH (09:56)
[2019-04-15] MEDS ORDERED: Pneumococcal 23-Valent Vaccine IM ONE (10:00)
[2019-04-15] MEDS: Azithromycin 500 MG in Sodium Chloride 0.9% 250 ML IVPB SCH (10:11)
[2019-04-15 10:24] LABS: ABG ALLEN TEST POS; ARTERIAL BLOOD GAS HEMOGLOBIN 11.3 g/dL (11.7-17.4); ARTERIAL BLOOD GAS PCO2 40 mm/Hg (35-45); ARTERIAL BLOOD GAS PH 7.46 (7.35-7.45); ARTERIAL BLOOD GAS PO2 56 mm/Hg (80-100); ARTERIAL BLOOD GAS TCO2 29.6 mmol/L (22-28)
[2019-04-15] MEDS: Potassium Chloride 20 mEq ER Tab PO SCH (17:27)
--- NOTE | 2019-04-15 19:31 | CP.PCM.PN ---
Subjective - Date & Time of Evaluation Date of Evaluation: 04/15/19 Objective - Vital Signs/Intake and Output Vital Signs (last 24 hours): Temp Pulse Resp BP Pulse Ox 97.8 F 77 20 129/61 95 04/15/19 16:00 04/15/19 16:00 04/15/19 16:00 04/15/19 16:00 04/15/19 16:00 Intake and Output: 04/15/19 04/16/19 18:59 06:59 Intake Total 300 Balance 300 - Medications Medications: Current Medications Acetaminophen (Tylenol 325mg Tab) 650 mg PO Q6 PRN PRN Reason: leg cramps/pain Last Admin: 04/14/19 17:02 Dose: 650 mg Albuterol/Ipratropium (Duoneb 3 Mg/0.5 Mg (3 Ml) Ud) 3 ml INH RQ6 PERI Last Admin: 04/15/19 14:43 Dose: Not Given Dronabinol (Marinol) 2.5 mg PO BID [facility] Last Admin: 04/15/19 17:28 Dose: 2.5 mg Enoxaparin Sodium (Lovenox) 40 mg SC DAILY PERI Last Admin: 04/15/19 09:56 Dose: 40 mg Famotidine (Pepcid) 20 mg PO BID PERI Last Admin: 04/15/19 17:28 Dose: 20 mg Azithromycin 500 mg/ Sodium (Chloride) 250 mls @ 250 mls/hr IVPB DAILY PERI; Protocol Last Admin: 04/15/19 10:11 Dose: 250 mls/hr Moxifloxacin HCl (Avelox Iv 400mg/250ml Ns) 400 mg in 250 mls @ 167 mls/hr IVPB Q24H PERI; Protocol Last Admin: 04/14/19 22:27 Dose: 167 mls/hr Lorazepam (Ativan) 0.5 mg PO BID PRN PRN Reason: Agitation Last Admin: 04/15/19 10:11 Dose: 0.5 mg Potassium Chloride (K-Dur 20 Meq Er Tab) 20 meq PO DAILY PERI Last Admin: 04/15/19 17:27 Dose: 20 meq - Labs Labs: 04/13/19 19:26 04/14/19 10:59
[2019-04-15] MEDS: Moxifloxacin IV 400mg/250ml NS 400 MG/250 ML BAG IVPB SCH (21:53)
[2019-04-16] MEDS: Albuterol-Ipratrop 3 mg / 0.5 (3 ml) UD INH SCH ×3 (01:15→13:17)
[2019-04-16 07:09] LABS: BASO % 0.9 % (0.0-2.0); EOS # 0.2 K/uL (0.0-0.7); EOS % 4.3 % (0.0-4.0); HEMOGLOBIN 10.6 g/dL (11.0-16.0); LYMPH # 1.1 K/uL (1.0-4.3); LYMPH % 21.6 % (20.0-40.0); MEAN CELL VOLUME 90.6 fL (81.0-99.0); MEAN CORPUSCULAR HEMOGLOBIN 29.7 pg (27.0-31.0); MEAN CORPUSCULAR HGB CONC 32.8 g/dL (33.0-37.0); MEAN PLATELET VOLUME 6.5 fL (7.2-11.7); MONO # 0.5 K/uL (0.0-0.8); NEUT # 3.2 K/uL (1.8-7.0); NEUT % 64.2 % (50.0-75.0); NRBC % 0.1 % (0.0-2.0); RBC 3.57 Mil/uL (3.80-5.20); RED CELL DISTRIBUTION WIDTH 15.7 % (11.5-14.5)
[2019-04-16 07:15] LABS: BLOOD UREA NITROGEN 8 mg/dL (7-17); CALCIUM 8.9 mg/dl (8.6-10.4); GFR NON-AFRICAN AMERICAN > 60
--- NOTE | 2019-04-16 08:17 | PN ---
DATE: 04/15/2019 SUBJECTIVE: The patient is alert, oriented, afebrile. PHYSICAL EXAMINATION: GENERAL: She is in bed, not in distress. VITAL SIGNS: She is afebrile with blood pressure 150/74, pulse 77, respirations 20 per minute, hemoglobin oxygen saturation 96% on room air. . HEART: Regular. LUNGS: Diminished breath sounds over the lung bases. Rhonchi decreased. There is no gallop rhythm. ABDOMEN: Soft. EXTREMITIES: Legs, no edema. Her GI symptoms are improving. There are no chance of headaches. LABORATORY DATA: Her urine shows . Blood cultures are reported negative twice. CT angio shows changes consistent with centrilobular emphysema, and there is no pulmonary embolism reported. ABG shows pH of 7.46, pCO2 48, pO2 56. Hemoglobin oxygen saturation is 93%. MEDICATIONS: The patient is on antibiotics and bronchodilators and pantoprazole. IMPRESSION: Respiratory insufficiency, chronic obstructive pulmonary disease with exacerbation of emphysema, sliding hiatus hernia, electrolyte imbalance. PLAN: To continue the current medications and management including bronchodilators and antibiotics for possible urosepsis and pneumonitis. The patient continues to have DVT prophylaxis. Bong Paul MD
[2019-04-16] MEDS: Enoxaparin 40 mg Syringe SC SCH (10:13)
[2019-04-16] MEDS: Potassium Chloride 20 mEq ER Tab PO SCH (10:14)
[2019-04-16] MEDS: Azithromycin 500 MG in Sodium Chloride 0.9% 250 ML IVPB SCH (10:21)
--- NOTE | 2019-04-16 12:39 | CARD ---
APPROVED REPORT Date of service: 04/13/2019 EKG Measurement Heart [id number] <Conclusion> Normal sinus rhythm Septal infarct, age undetermined Inferior infarct, age undetermined Abnormal ECG
--- NOTE | 2019-04-16 13:37 | CP.PCM.PN ---
Subjective - Date & Time of Evaluation Date of Evaluation: 04/16/19 Time of Evaluation: 13:33 - Subjective Subjective: CHART REVIEWED. PT SEEN AND EXAMINED. COVERING DR Jonathan VENEGAS PT ALERT, +SOB THIS AM, NOW BETTER +PALPITATIONS. ROS; OTHERWISE NEG Objective - Vital Signs/Intake and Output Vital Signs (last 24 hours): Temp Pulse Resp BP Pulse Ox 97.3 F L 80 20 145/71 99 04/16/19 08:15 04/16/19 08:15 04/16/19 08:15 04/16/19 08:15 04/16/19 08:15 Intake and Output: 04/16/19 04/16/19 06:59 18:59 Intake Total 590 Balance 590 - Medications Medications: Current Medications Acetaminophen (Tylenol 325mg Tab) 650 mg PO Q6 PRN PRN Reason: leg cramps/pain Last Admin: 04/14/19 17:02 Dose: 650 mg Albuterol/Ipratropium (Duoneb 3 Mg/0.5 Mg (3 Ml) Ud) 3 ml INH RQ6 PERI Last Admin: 04/16/19 13:17 Dose: Not Given Dronabinol (Marinol) 2.5 mg PO BID PERI Last Admin: 04/16/19 10:14 Dose: 2.5 mg Enoxaparin Sodium (Lovenox) 40 mg SC DAILY [facility] Last Admin: 04/16/19 10:13 Dose: 40 mg Famotidine (Pepcid) 20 mg PO BID [facility] Last Admin: 04/16/19 10:13 Dose: 20 mg Azithromycin 500 mg/ Sodium (Chloride) 250 mls @ 250 mls/hr IVPB DAILY [facility]; Protocol Last Admin: 04/16/19 10:21 Dose: 250 mls/hr Moxifloxacin HCl (Avelox Iv 400mg/250ml Ns) 400 mg in 250 mls @ 167 mls/hr IVPB Q24H [facility]; Protocol Last Admin: 04/15/19 21:53 Dose: 167 mls/hr Lorazepam (Ativan) 0.5 mg PO BID PRN PRN Reason: Agitation Last Admin: 04/16/19 08:35 Dose: 0.5 mg Potassium Chloride (K-Dur 20 Meq Er Tab) 20 meq PO DAILY [facility] Last Admin: 04/16/19 10:14 Dose: 20 meq - Labs Labs: 04/16/19 06:47 04/16/19 06:47 - Constitutional Appears: No Acute Distress, Chronically Ill - Head Exam Head Exam: ATRAUMATIC, NORMOCEPHALIC - Eye Exam Eye Exam: EOMI, Normal appearance - ENT Exam ENT Exam: Mucous Membranes Moist - Neck Exam Neck Exam: Normal Inspection - Respiratory Exam Respiratory Exam: Decreased Breath Sounds, Prolonged Expiratory Phase. absent: Wheezes - Cardiovascular Exam Cardiovascular Exam: RRR, +S1, +S2 - GI/Abdominal Exam GI & Abdominal Exam: Soft. absent: Tenderness - Rectal Exam Rectal Exam: Deferred - Extremities Exam Extremities Exam: absent: Calf Tenderness, Pedal Edema - Back Exam Back Exam: absent: CVA tenderness (L), CVA tenderness (R) - Neurological Exam Neurological Exam: Alert, Awake, CN II-XII Intact, Oriented x3 - Psychiatric Exam Psychiatric exam: Normal Mood - Skin Skin Exam: absent: Rash Assessment and Plan (1) Respiratory failure Status: Acute (2) HTN (hypertension) Status: Acute (3) Hiatal hernia Status: Acute (4) Anxiety Status: Acute (5) COPD (chronic obstructive pulmonary disease) Status: Chronic (6) HLD (hyperlipidemia) Status: Chronic - Assessment and Plan (Free Text) Assessment: RESP STATUS NO SIG CHANGE. CONT NEB BD., MONITOR O2 SAT. PULM TOILET. CXR REVIEWED. AFEBRILE ON AB. FOR ID EVAL. DISCUSSED WITH STAFF AT LENGTH. TIME SPENT 40MIN
[2019-04-16] MEDS: Albuterol 0.042% Inhal Sol (1.25 mg/3 mL) UD INH SCH (16:26)
[2019-04-16] MEDS: Meropenem 1 GM in Sodium Chloride 0.9% 100 ML IVPB SCH (21:53)
[2019-04-17] MEDS: Albuterol 0.042% Inhal Sol (1.25 mg/3 mL) UD INH SCH ×3 (00:33→16:00)
[2019-04-17] MEDS: Meropenem 1 GM in Sodium Chloride 0.9% 100 ML IVPB SCH ×3 (05:03→21:15)
[2019-04-17 07:54] LABS: BASO # 0.1 K/uL (0.0-0.2); BASO % 1.3 % (0.0-2.0); EOS # 0.3 K/uL (0.0-0.7); EOS % 6.4 % (0.0-4.0); HEMOGLOBIN 10.6 g/dL (11.0-16.0); LYMPH % 20.4 % (20.0-40.0); MEAN CELL VOLUME 91.1 fL (81.0-99.0); MEAN CORPUSCULAR HEMOGLOBIN 30.4 pg (27.0-31.0); MEAN CORPUSCULAR HGB CONC 33.4 g/dL (33.0-37.0); MEAN PLATELET VOLUME 6.5 fL (7.2-11.7); MONO # 0.5 K/uL (0.0-0.8); MONO % 9.7 % (0.0-10.0); NEUT # 3.1 K/uL (1.8-7.0); NEUT % 62.2 % (50.0-75.0); RBC 3.47 Mil/uL (3.80-5.20); RED CELL DISTRIBUTION WIDTH 15.7 % (11.5-14.5)
[2019-04-17 08:19] LABS: ALB/GLOB RATIO 1.1 (1.0-2.1); ALT/SGPT 15 U/L (9-52); AST/SGOT 18 U/L (14-36); BLOOD UREA NITROGEN 10 mg/dL (7-17); CALCIUM 8.7 mg/dl (8.6-10.4); GFR NON-AFRICAN AMERICAN > 60
[2019-04-17] MEDS: Enoxaparin 40 mg Syringe SC SCH (10:01)
[2019-04-17] MEDS: Potassium Chloride 20 mEq ER Tab PO SCH (10:02)
[2019-04-17] MEDS: Azithromycin 500 MG in Sodium Chloride 0.9% 250 ML IVPB SCH (10:09)
--- NOTE | 2019-04-17 15:54 | CP.PCM.CON ---
History of Present Illness - History of Present Illness History of Present Illness: 78 year old female who presents to the ED with her daughter for evaluation after a recent hospitalization 2 weeks ago for pneumonia. she returns with cough and sob Patient reports cough, productive of yellow sputum, fevers/chills, SOB, decreased appetite and poor fluid intake. pmhx: COPD, HLD, bladder cancer, anxiety, psoriasis, left eye cataract/glaucoma? pshx: tonsillectomy, bladder scrapings meds: prevacid, lipitor, ativan, advair, atrovent, ventolin, eye drops-daughter will bring in meds tmrw allergies: denies, reports PCN insensitivity 2/2 frequent use as a child to treat recurrent tonsillitis sochx: smoker, denies alcohol/drug use. Lives alone w/ daughter in same building who helps care for her famhx: CHF Review of Systems - Review of Systems All systems: reviewed and no additional remarkable complaints except - Constitutional Constitutional: As Per HPI, Malaise - EENT Eyes: absent: As Per HPI, Blind Spots, Blurred Vision, Change in Vision, Decreased Night Vision, Diplopia, Discharge, Dry Eye, Exophthalmos, Floaters, Irritation, Itchy Eyes, Loss of Peripheral Vision, Pain, Photophobia, Requires Corrective Lenses, Sees Flashes, Spots in Vision, Tunnel Vision, Other Visual Disturbances, Loss of Vision, Other Ears: absent: As Per HPI, Decreased Hearing, Ear Discharge, Ear Pain, Tinnitus, Abnormal Hearing, Disequilibrium, Dizziness, Other - Breasts Breasts: absent: As Per HPI, Change in Shape, Mass, Pain, Nipple Discharge, Nipple Inversion, Skin Changes, Swelling, Other - Cardiovascular Cardiovascular: absent: As Per HPI, Acrocyanosis, Chest Pain, Chest Pain at Rest, Chest Pain with Activity, Claudication, Diaphoresis, Dyspnea, Dyspnea on Exertion, Edema, Irregular Heart Rhythm, Pain Radiating to Arm/Neck/Jaw, Leg Edema, Leg Ulcers, Lightheadedness, Orthopnea, Palpitations, Paroxysmal Nocturnal Dyspnea, Pedal Edema, Radiating Pain, Rapid Heart Rate, Slow Heart Rate, Syncope, Other - Respiratory Respiratory: As Per HPI, Cough - Gastrointestinal Gastrointestinal: absent: As Per HPI, Abdominal Pain, Belching, Bloating, Change in Bowel Habits, Change in Stool Character, Coffee Ground Emesis, Constipation, Cramping, Diarrhea, Dyspepsia, Dysphagia, Early Satiety, Excessive Flatus, Fecal Incontinence, Heartburn, Hematemesis, Hematochezia, Loose Stools, Melena, Naus ea, Odynophagia, Temesmus, Vomiting, Other - Genitourinary Genitourinary: As Per HPI - Reproductive: Female Reproductive:Female: absent: As Per HPI, Amenorrhea, Amenorrhea/ Control, Currently Menstual, Cycle <21 Days, Cycle >35 Days, Cycle Variable, Menses 1-7 Days, Menses >/= 8 Days, Menses Variable, Cycle > 4 Weeks Between, No Menses for 6 Months, Heavy Menses, Light Menses, Normal Menses, Spotting Between Cycles, S/P Hysterectomy, Menopausal, Post Menopausal, Premenarche, Abnormal Vaginal Bleeding, Dysmenorrhea, Dyspareunia, Genital Lesions, Genital Pruritis, Pelvic Pain, Prolapse Symptoms, Sexual Dysfunction, Vaginal Discharge, Vaginal Dryness, Vaginal Odor, Vaginal Pruritis, Other - Menstruation Menstruation: absent: As Per HPI, Amenorrhea, Amenorrhea/ Control, Currently Menstual, Cycle <21 Days, Cycle >35 Days, Cycle Variable, Menses 1-7 Days, Menses >/= 8 Days, Menses Variable, Cycle > 4 Weeks Between, No Menses for 6 Months, Heavy Menses, Light Menses, Normal Menses, Spotting Between Cycles, S/P Hysterectomy, Menopausal, Post Menopausal, Premenarche, Abnormal Vaginal Bleeding, Dysmenorrhea, Other - Musculoskeletal Musculoskeletal: absent: As Per HPI, Abnormal Gait, Arthralgias, Atrophy, Back Pain, Deformity, Joint Swelling, Limited Range of Motion, Loss of Height, Muscle Cramps, Muscle Weakness, Myalgias, Neck Pain, Numbness, Radiating Pain into Limb, Stiffness, Tingling, Other - Integumentary Integumentary: absent: As Per HPI, Acne, Alopecia, Bleeding Lesions, Change in Hair, Change in Nails, Change in Pigmentation, Changing Lesions, Dry Skin, Erythema, Furuncle, Hirsutism, Lesions, New Lesions, Non-Healing Lesions, Photosensitivity, Pruritus, Rash, Skin Pain, Skin Ulcer, Sores, Striae, Swelling, Unusual Bruising, Wounds, Jaundice, Other - Neurological Neurological: absent: As Per HPI, Abnormal Gait, Abnormal Hearing, Abnormal Movements, Abnormal Speech, Behavioral Changes, Burning Sensations, Confusion, Convulsions, Disequilibrium, Dizziness, Numbness, Focal Weakness, Frequent Falls, Headaches, Lack of Coordination, Loss of Vision, Memory Loss, Paresthesias, Radicular Pain, Restless Legs, Sensory Deficit, Syncope, Tingling, Tremor, Vertigo, Weakness, Other Visual Disturbances, Other - Psychiatric Psychiatric: absent: As Per HPI, Abnormal Sleep Pattern, Anhedonia, Anxiety, Auditory Hallucinations, Behavioral Changes, Change in Appetite, Change in Libido, Confusion, Depression, Difficulty Concentrating, Hallucinations, Homicidal Ideation, Hopelessness, Irritability, Memory Loss, Mood Swings, Panic Attacks, Paranoia, Suicidal Ideation, Visual Hallucinations, Tactile Hallucinations, Other - Endocrine Endocrine: absent: As Per HPI, Change in Body Appearance, Change in Libido, Cold Intolorance, Deepening of Voice, Excessive Sweating, Fatigue, Flushing, Heat Intolorance, Increase in Ring/Shoe/Hat Size, Palpitations, Polydipsia, Polyphagia, Polyuria, Other - Hematologic/Lymphatic Hematologic: absent: As Per HPI, Easy Bleeding, Easy Bruising, Lymphadenopathy, Other Past Patient History - Infectious Disease Hx of Infectious Diseases: None - Past Medical History & Family History Past Medical History?: Yes - Past Social History Smoking Status: Current Some Days Smoker - CARDIAC Hx Cardiac Disorders: Yes Hx Hypercholesterolemia: Yes Hx Hypertension: Yes - PULMONARY Hx Chronic Obstructive Pulmonary Disease (COPD): Yes - NEUROLOGICAL Hx Neurological Disorder: No - HEENT Hx HEENT Problems: No - RENAL Hx Chronic Kidney Disease: No - ENDOCRINE/METABOLIC Hx Endocrine Disorders: No - HEMATOLOGICAL/ONCOLOGICAL Hx Blood Disorders: No Other/Comment: Hx of bladder CA with occasional scraping by Dr. Dey, as per daughter, stated on 03/28/2019. - INTEGUMENTARY Hx Dermatological Problems: Yes Hx Psoriasis: Yes (feet) - MUSCULOSKELETAL/RHEUMATOLOGICAL Hx Musculoskeletal Disorders: No Hx Falls: No - GASTROINTESTINAL Hx Gastrointestinal Disorders: No - GENITOURINARY/GYNECOLOGICAL Hx Genitourinary Disorders: Yes Hx Bladder Cancer: Yes Other/Comment: Hx of bladder CA with occasional scraping by Dr. Dey, as per daughter, stated on 03/28/2019. - PSYCHIATRIC Hx Psychophysiologic Disorder: No Hx Substance Use: No - SURGICAL HISTORY Hx Surgeries: Yes Hx Tonsillectomy: Yes - ANESTHESIA Hx Anesthesia: Yes Hx Anesthesia Reactions: No Hx Malignant Hyperthermia: No Has any member of the family had a problem w/ anesthesia?: No Meds Allergies/Adverse Reactions: Allergies Allergy/AdvReac Type Severity Reaction Status Date / Time Penicillins AdvReac Intermediate Verified 04/13/19 18:59 - Medications Medications: Current Medications Acetaminophen (Tylenol 325mg Tab) 650 mg PO Q6 PRN PRN Reason: leg cramps/pain Last Admin: 04/14/19 17:02 Dose: 650 mg Albuterol Sulfate (Albuterol 0.042% Inhal Tsering (1.25mg/3ml) Ud) 1.25 mg INH RQ8 PERI Last Admin: 04/17/19 10:09 Dose: 1.25 mg Dronabinol (Marinol) 2.5 mg PO BID [facility] Last Admin: 04/17/19 10:02 Dose: 2.5 mg Enoxaparin Sodium (Lovenox) 40 mg SC DAILY [facility] Last Admin: 04/17/19 10:01 Dose: 40 mg Famotidine (Pepcid) 20 mg PO BID [facility] Last Admin: 04/17/19 10:02 Dose: 20 mg Meropenem 1 gm/ Sodium (Chloride) 100 mls @ 100 mls/hr IVPB Q8H [facility]; Protocol Last Admin: 04/17/19 14:30 Dose: 100 mls/hr Lorazepam (Ativan) 0.5 mg PO BID PRN PRN Reason: Agitation Last Admin: 04/17/19 10:01 Dose: 0.5 mg Potassium Chloride (K-Dur 20 Meq Er Tab) 20 meq PO DAILY [facility] Last Admin: 04/17/19 10:02 Dose: 20 meq Physical Exam - Constitutional Appears: Non-toxic, No Acute Distress, Confused, Chronically Ill - Head Exam Head Exam: NORMOCEPHALIC (x) - Eye Exam Eye Exam: absent: Scleral icterus Pupil Exam: NORMAL ACCOMODATION - ENT Exam ENT Exam: Mucous Membranes Dry - Neck Exam Neck exam: Negative for: Lymphadenopathy - Respiratory Exam Respiratory Exam: Decreased Breath Sounds, Prolonged Expiratory Phase, Rhonchi - Cardiovascular Exam Cardiovascular Exam: REGULAR RHYTHM, +S1, +S2 - GI/Abdominal Exam GI & Abdominal Exam: Diminished Bowel Sounds, Soft. absent: Tenderness - Rectal Exam Rectal Exam: Deferred - Exam Exam: NORMAL INSPECTION - Extremities Exam Extremities exam: Negative for: calf tenderness, pedal edema - Back Exam Back exam: absent: CVA tenderness (L), CVA tenderness (R) - Neurological Exam Neurological exam: Alert, CN II-XII Intact, Oriented x3, Reflexes Normal - Psychiatric Exam Psychiatric exam: Depressed - Skin Skin Exam: Dry Results - Vital Signs Recent Vital Signs: Last Vital Signs Temp 97.8 F 04/17/19 07:31 Pulse 76 04/17/19 07:31 Resp 20 04/17/19 07:31 BP 138/74 04/17/19 07:31 Pulse Ox 97 04/17/19 07:31 - Labs Result Diagrams: 04/17/19 07:40 04/17/19 07:40 Labs: Laboratory Results - last 24 hr 04/17/19 04/17/19 07:40 07:40 WBC 5.0 RBC 3.47 L Hgb 10.6 L Hct 31.6 L MCV 91.1 MCH 30.4 MCHC 33.4 RDW 15.7 H Plt Count 323 MPV 6.5 L Neut % (Auto) 62.2 Lymph % (Auto) 20.4 [place] % (Auto) 9.7 Eos % (Auto) 6.4 H Baso % (Auto) 1.3 Neut # (Auto) 3.1 Lymph # (Auto) 1.0 [place] # (Auto) 0.5 Eos # (Auto) 0.3 Baso # (Auto) 0.1 Sodium 139 Potassium 3.9 Chloride 101 Carbon Dioxide 29 Anion Gap 13 BUN 10 Creatinine 0.5 L Est GFR ( Amer) > 60 Est GFR (Non-Af Amer) > 60 Random Glucose 95 Calcium 8.7 Total Bilirubin 0.2 AST 18 ALT 15 Alkaline Phosphatase 70 Total Protein 5.8 L Albumin 3.0 L D Globulin 2.7 Albumin/Globulin Ratio 1.1 Assessment & Plan (1) Failure to thrive in adult Status: Acute (2) HTN (hypertension) Status: Acute (3) Bladder CA in situ Status: Chronic (4) COPD (chronic obstructive pulmonary disease) Status: Chronic (5) Pneumonia Status: Resolved - Assessment and Plan (Free Text) Assessment: pneumonia r/o lung mass UTI ESBL+ cont iv antibiotics need and pulmonary eval IV rx ordered
--- NOTE | 2019-04-17 18:22 | CP.PCM.PN ---
Subjective - Date & Time of Evaluation Date of Evaluation: 04/17/19 - Subjective Subjective: patient seen and examined today no nausea no vomiting no dizziness no diarrhea no fever no shortness of breath Objective - Vital Signs/Intake and Output Vital Signs (last 24 hours): Temp Pulse Resp BP Pulse Ox 97.9 F 85 20 120/75 97 04/17/19 16:00 04/17/19 16:00 04/17/19 16:00 04/17/19 16:00 04/17/19 16:00 Intake and Output: 04/17/19 04/17/19 06:59 18:59 Intake Total 740 750 Balance 740 750 - Medications Medications: Current Medications Acetaminophen (Tylenol 325mg Tab) 650 mg PO Q6 PRN PRN Reason: leg cramps/pain Last Admin: 04/14/19 17:02 Dose: 650 mg Albuterol Sulfate (Albuterol 0.042% Inhal Tsering (1.25mg/3ml) Ud) 1.25 mg INH RQ8 PERI Last Admin: 04/17/19 10:09 Dose: 1.25 mg Dronabinol (Marinol) 2.5 mg PO BID [facility] Last Admin: 04/17/19 10:02 Dose: 2.5 mg Enoxaparin Sodium (Lovenox) 40 mg SC DAILY [facility] Last Admin: 04/17/19 10:01 Dose: 40 mg Famotidine (Pepcid) 20 mg PO BID [facility] Last Admin: 04/17/19 18:16 Dose: 20 mg Meropenem 1 gm/ Sodium (Chloride) 100 mls @ 100 mls/hr IVPB Q8H [facility]; Protocol Last Admin: 04/17/19 14:30 Dose: 100 mls/hr Lorazepam (Ativan) 0.5 mg PO BID PRN PRN Reason: Agitation Last Admin: 04/17/19 10:01 Dose: 0.5 mg Potassium Chloride (K-Dur 20 Meq Er Tab) 20 meq PO DAILY [facility] Last Admin: 04/17/19 10:02 Dose: 20 meq - Labs Labs: 04/17/19 07:40 04/17/19 07:40 - Constitutional Appears: Well - Head Exam Head Exam: ATRAUMATIC, NORMAL INSPECTION, NORMOCEPHALIC - Eye Exam Eye Exam: EOMI, Normal appearance, PERRL Pupil Exam: NORMAL ACCOMODATION, PERRL - ENT Exam ENT Exam: Mucous Membranes Moist, Normal Exam - Neck Exam Neck Exam: Full ROM, Normal Inspection. absent: Lymphadenopathy - Respiratory Exam Respiratory Exam: Decreased Breath Sounds - Cardiovascular Exam Cardiovascular Exam: REGULAR RHYTHM, +S1, +S2 - GI/Abdominal Exam GI & Abdominal Exam: Soft, Diminished Bowel Sounds - Rectal Exam Rectal Exam: Deferred - Neurological Exam Neurological Exam: Oriented x3 Assessment and Plan - Assessment and Plan (Free Text) Plan: plan discussed with patient moderate complexity of care medications reviewed albuterol ativan k-dur lovenox marinol meropenm pepcid tylenol labs and vitals reviewed
[2019-04-18] MEDS: Albuterol 0.042% Inhal Sol (1.25 mg/3 mL) UD INH SCH ×4 (00:44→16:19)
[2019-04-18] MEDS: Meropenem 1 GM in Sodium Chloride 0.9% 100 ML IVPB SCH ×2 (05:16→14:09)
[2019-04-18] MEDS: Enoxaparin 40 mg Syringe SC SCH (09:20)
[2019-04-18] MEDS: Potassium Chloride 20 mEq ER Tab PO SCH (09:20)
--- NOTE | 2019-04-18 12:31 | CP.PCM.PN ---
Subjective - Date & Time of Evaluation Date of Evaluation: 04/18/19 Time of Evaluation: 08:00 - Subjective Subjective: awake alert weak NAD Dr Paul on board Objective - Vital Signs/Intake and Output Vital Signs (last 24 hours): Temp Pulse Resp BP Pulse Ox 98 F 72 20 133/80 97 04/18/19 08:01 04/18/19 08:01 04/18/19 08:01 04/18/19 08:01 04/18/19 08:01 Intake and Output: 04/18/19 04/18/19 06:59 18:59 Intake Total 500 340 Balance 500 340 - Medications Medications: Current Medications Acetaminophen (Tylenol 325mg Tab) 650 mg PO Q6 PRN PRN Reason: leg cramps/pain Last Admin: 04/14/19 17:02 Dose: 650 mg Albuterol Sulfate (Albuterol 0.042% Inhal Tsering (1.25mg/3ml) Ud) 1.25 mg INH RQ8 PERI Last Admin: 04/18/19 10:43 Dose: 1.25 mg Dronabinol (Marinol) 2.5 mg PO BID [facility] Last Admin: 04/18/19 09:21 Dose: 2.5 mg Enoxaparin Sodium (Lovenox) 40 mg SC DAILY [facility] Last Admin: 04/18/19 09:20 Dose: 40 mg Famotidine (Pepcid) 20 mg PO BID [facility] Last Admin: 04/18/19 09:21 Dose: 20 mg Meropenem 1 gm/ Sodium (Chloride) 100 mls @ 100 mls/hr IVPB Q8H [facility]; Protocol Last Admin: 04/18/19 05:16 Dose: 100 mls/hr Lorazepam (Ativan) 0.5 mg PO BID PRN PRN Reason: Agitation Last Admin: 04/18/19 09:21 Dose: 0.5 mg Potassium Chloride (K-Dur 20 Meq Er Tab) 20 meq PO DAILY [facility]I Last Admin: 04/18/19 09:20 Dose: 20 meq - Labs Labs: 04/17/19 07:40 04/17/19 07:40 - Constitutional Appears: Non-toxic, Cachectic, Chronically Ill - Head Exam Head Exam: ATRAUMATIC, NORMAL INSPECTION, NORMOCEPHALIC - Eye Exam Eye Exam: EOMI, Normal appearance, PERRL Pupil Exam: NORMAL ACCOMODATION, PERRL - ENT Exam ENT Exam: Mucous Membranes Moist, Normal Exam - Neck Exam Neck Exam: Full ROM, Normal Inspection. absent: Lymphadenopathy - Respiratory Exam Respiratory Exam: Decreased Breath Sounds, Clear to Ausculation Bilateral, Prolonged Expiratory Phase - Cardiovascular Exam Cardiovascular Exam: REGULAR RHYTHM, +S1, +S2. absent: Murmur - GI/Abdominal Exam GI & Abdominal Exam: Soft, Normal Bowel Sounds. absent: Tenderness - Rectal Exam Rectal Exam: Deferred - Extremities Exam Extremities Exam: Full ROM, Normal Capillary Refill, Normal Inspection. absent: Joint Swelling, Pedal Edema - Back Exam Back Exam: NORMAL INSPECTION - Neurological Exam Neurological Exam: Alert, Awake, CN II-XII Intact, Oriented x3. absent: Normal Gait - Psychiatric Exam Psychiatric exam: Normal Affect, Normal Mood - Skin Skin Exam: Dry, Intact, Normal Color, Warm Assessment and Plan (1) Failure to thrive in adult Status: Acute (2) HTN (hypertension) Status: Acute (3) Bladder CA in situ Status: Chronic (4) COPD (chronic obstructive pulmonary disease) Status: Chronic (5) Pneumonia Status: Resolved - Assessment and Plan (Free Text) Assessment: cont IV Merrem x 10 days
--- NOTE | 2019-04-18 13:39 | CP.PCM.PN ---
Subjective - Date & Time of Evaluation Date of Evaluation: 04/18/19 Time of Evaluation: 10:00 - Subjective Subjective: alert, responsive,comfortable, no aute distress. Objective - Vital Signs/Intake and Output Vital Signs (last 24 hours): Temp Pulse Resp BP Pulse Ox 98 F 72 20 133/80 97 04/18/19 08:01 04/18/19 08:01 04/18/19 08:01 04/18/19 08:01 04/18/19 08:01 Intake and Output: 04/18/19 04/18/19 06:59 18:59 Intake Total 500 340 Balance 500 340 - Medications Medications: Current Medications Acetaminophen (Tylenol 325mg Tab) 650 mg PO Q6 PRN PRN Reason: leg cramps/pain Last Admin: 04/14/19 17:02 Dose: 650 mg Albuterol Sulfate (Albuterol 0.042% Inhal Tsering (1.25mg/3ml) Ud) 1.25 mg INH RQ8 PERI Last Admin: 04/18/19 10:43 Dose: 1.25 mg Dronabinol (Marinol) 2.5 mg PO BID [facility] Last Admin: 04/18/19 09:21 Dose: 2.5 mg Enoxaparin Sodium (Lovenox) 40 mg SC DAILY [facility] Last Admin: 04/18/19 09:20 Dose: 40 mg Famotidine (Pepcid) 20 mg PO BID [facility] Last Admin: 04/18/19 09:21 Dose: 20 mg Meropenem 1 gm/ Sodium (Chloride) 100 mls @ 100 mls/hr IVPB Q8H [facility]; Protocol Last Admin: 04/18/19 05:16 Dose: 100 mls/hr Lorazepam (Ativan) 0.5 mg PO BID PRN PRN Reason: Agitation Last Admin: 04/18/19 09:21 Dose: 0.5 mg Potassium Chloride (K-Dur 20 Meq Er Tab) 20 meq PO DAILY [facility] Last Admin: 04/18/19 09:20 Dose: 20 meq - Labs Labs: 04/17/19 07:40 04/17/19 07:40 Assessment and Plan - Assessment and Plan (Free Text) Assessment: 78 year old female admitted with pneumonia, cough, hypokalemia, seen and examined. Alert, awake, no acute distress noted. On 2 liter oxygen, comfortable, no sob or acute distress noted. To continue with meropenum 1gm q8 hourly x7 more days as per DR Schreiber
--- NOTE | 2019-04-18 15:53 | CP.PCM.PN ---
Subjective - Date & Time of Evaluation Date of Evaluation: 04/18/19 - Subjective Subjective: patient seen and examined today no nausea no vomiting no dizziness no fever no diarrhea no shortness of breath Objective - Vital Signs/Intake and Output Vital Signs (last 24 hours): Temp Pulse Resp BP Pulse Ox 98 F 72 20 133/80 97 04/18/19 08:01 04/18/19 08:01 04/18/19 08:01 04/18/19 08:01 04/18/19 08:01 Intake and Output: 04/18/19 04/18/19 06:59 18:59 Intake Total 500 340 Balance 500 340 - Medications Medications: Current Medications Acetaminophen (Tylenol 325mg Tab) 650 mg PO Q6 PRN PRN Reason: leg cramps/pain Last Admin: 04/14/19 17:02 Dose: 650 mg Albuterol Sulfate (Albuterol 0.042% Inhal Tsering (1.25mg/3ml) Ud) 1.25 mg INH RQ8 PERI Last Admin: 04/18/19 10:43 Dose: 1.25 mg Dronabinol (Marinol) 2.5 mg PO BID [facility] Last Admin: 04/18/19 09:21 Dose: 2.5 mg Enoxaparin Sodium (Lovenox) 40 mg SC DAILY [facility] Last Admin: 04/18/19 09:20 Dose: 40 mg Famotidine (Pepcid) 20 mg PO BID [facility] Last Admin: 04/18/19 09:21 Dose: 20 mg Meropenem 1 gm/ Sodium (Chloride) 100 mls @ 100 mls/hr IVPB Q8H [facility]; Protocol Last Admin: 04/18/19 14:09 Dose: 100 mls/hr Lorazepam (Ativan) 0.5 mg PO BID PRN PRN Reason: Agitation Last Admin: 04/18/19 09:21 Dose: 0.5 mg Potassium Chloride (K-Dur 20 Meq Er Tab) 20 meq PO DAILY [facility] Last Admin: 04/18/19 09:20 Dose: 20 meq - Labs Labs: 04/17/19 07:40 04/17/19 07:40 - Constitutional Appears: Well - Head Exam Head Exam: ATRAUMATIC, NORMAL INSPECTION, NORMOCEPHALIC - Eye Exam Eye Exam: EOMI, Normal appearance, PERRL Pupil Exam: NORMAL ACCOMODATION, PERRL - ENT Exam ENT Exam: Mucous Membranes Moist, Normal Exam - Neck Exam Neck Exam: Full ROM, Normal Inspection. absent: Lymphadenopathy - Respiratory Exam Respiratory Exam: Decreased Breath Sounds - Cardiovascular Exam Cardiovascular Exam: REGULAR RHYTHM, +S1, +S2 - GI/Abdominal Exam GI & Abdominal Exam: Soft, Diminished Bowel Sounds - Rectal Exam Rectal Exam: Deferred - Neurological Exam Neurological Exam: Oriented x3 Assessment and Plan - Assessment and Plan (Free Text) Plan: plan discussed with patient moderate complexity of care medications reviewed labs reviewed vitals reviewed albuterol ativan k-dur lovenox marinol meropenm pepcid tylenol
[2019-04-18 15:57] VITALS: BP 126/74; PULSE 73; TEMP 97.9; O2SAT 98
--- NOTE | 2019-04-19 07:25 | PN ---
DATE: 04/18/2019 SUBJECTIVE: The patient is alert and oriented, afebrile. She is not in acute distress. Her breathing is better. Cough has subsided. It is no more yellow. No fevers. No chills. PHYSICAL EXAMINATION: VITAL SIGNS: She is afebrile with blood pressure 133/80, pulse 72, and respirations 20. HEART: Her heart is regular. There is no gallop present. LUNGS: Diminished breath sounds. Rhonchi decreased. ABDOMEN: Soft. EXTREMITIES: Legs, no edema. LABORATORY DATA: Hemoglobin-oxygen saturation of 97% on room air. IMPRESSION: 1. Respiratory insufficiency. 2. Pneumonitis, exacerbation of chronic obstructive pulmonary disease. 3. Emphysema. 4. Hiatal hernia. 5. Dyspepsia. PLAN: To continue with the current medications including bronchodilators and Pepcid. Her potassium has come up to 3.9 and white count is 5000 with hemoglobin 10.6. She will continue with her medication and follow up with PMD. Bong Paul MD
== END 2019-04-18 16:58 | disposition home or self-care (01) | DRG 193 ==
LOC: C.ER 18:51 → C.9E 21:55 → C.3T 22:09
PROVIDERS: ADMIT Internal Medicine Nephrology; ATTEND Internal Medicine Nephrology
DX: J18.1 Lobar pneumonia, unspecified organism (principal); R62.7 Adult failure to thrive; J96.90 Respiratory failure, unspecified, unspecified whether with hypoxia or hypercapnia; N39.0 Urinary tract infection, site not specified; J43.9 Emphysema, unspecified; E87.6 Hypokalemia; D09.0 Carcinoma in situ of bladder; E78.5 Hyperlipidemia, unspecified; F41.9 Anxiety disorder, unspecified; G47.00 Insomnia, unspecified; K44.9 Diaphragmatic hernia without obstruction or gangrene; F17.211 Nicotine dependence, cigarettes, in remission; B96.20 Unspecified Escherichia coli [E. coli] as the cause of diseases classified elsewhere; Z16.12 Extended spectrum beta lactamase (ESBL) resistance; E78.00 Pure hypercholesterolemia, unspecified; Z99.81 Dependence on supplemental oxygen; Z82.49 Family history of ischemic heart disease and other diseases of the circulatory system